=== PATIENT | male | born 1985 | race Hispanic/Latino ===

== ENCOUNTER 2021-07-03 15:47 | Inpatient (IN) | payer OTHER ==
[~2021-07-03] VITALS: Ht 175.3 cm; Wt 134.3 kg
[2021-07-03 17:01] LABS: BASOPHILS % (AUTO) 0.4 % (0.0-5.0); EOSINOPHILS % (AUTO) 0.5 % (0.0-8.0); HEMATOCRIT 41.9 % (42-54); LYMPHOCYTES % (AUTO) 8.5 % (21.0-51.0); MEAN CORPUSCULAR HEMOGLOBIN 31.9 pg (27.0-33.0); MEAN CORPUSCULAR HGB CONC 32.9 g/dL (32.0-36.0); MONOCYTES % (AUTO) 5.3 % (3.0-13.0); NEUTROPHILS % (AUTO) 83.6 % (40.0-77.0); PLATELET COUNT (AUTO) 164 K/uL (130-400); RED BLOOD CELL COUNT(AUTO) 4.32 MIL/uL (4.50-6.20); RED CELL DISTRIBUTION WIDTH 12.3 % (11.0-15.5)
[2021-07-03 17:04] LABS: INR 1.16 (0.85-1.15); PROTHROMBIN TIME 12.5 SEC (9.6-11.6)
[2021-07-03 17:06] LABS: PARTIAL THROMBOPLASTIN TIME 32.5 SEC (26.3-35.5)
[2021-07-03 17:07] LABS: POTASSIUM 4.1 mmol/L (3.5-5.1)
[2021-07-03 17:12] LABS: ALBUMIN 2.9 g/dL (3.5-5.0); BILIRUBIN,TOTAL 1.4 mg/dL (0.2-1.0); TOTAL PROTEIN, SERUM 7.7 g/dL (6.0-8.3)
[2021-07-03] MEDS ORDERED: ASCO1500 PO (17:18)
[2021-07-03] MEDS ORDERED: SEMA1PEN3 SQ (17:18)
[2021-07-03] MEDS ORDERED: METF500S7 PO (17:18)
[2021-07-03] MEDS ORDERED: LOSA50TA64 PO (17:18)
[2021-07-03] MEDS ORDERED: METF-444 PO (17:18)
[2021-07-03] MEDS ORDERED: MORPHINE 4 MG SYG IV ONE (18:00)
[2021-07-03] MEDS ORDERED: INSULIN HUMULIN R 100 UNIT/ML 3ML IV ONE (18:00)
[2021-07-03] MEDS ORDERED: 0.9%NACL 1000ML 1,000 ML IV ONE ×2 (18:00)
[2021-07-03] MEDS ORDERED: ONDANSETRON 4MG INJ IVP ONE (18:00)
[2021-07-03] MEDS ORDERED: ZOSYN 3.375GM+NS 50ML 3.38 GM in 0.9%NACL 50ML 50 ML IV SCH (18:00)
[2021-07-03] MEDS ORDERED: 0.9%NACL 50ML IV SCH (18:30)
[2021-07-03] MEDS: ZOSYN 3.375GM +NS 50ML IV SCH (18:53)
[2021-07-03] MEDS ORDERED: ONDANSETRON 4MG INJ IV PRN (20:00)
[2021-07-03] MEDS ORDERED: VANCOMYCIN PROTOCOL PER PHARMACY IV PRN (20:00)
[2021-07-03] MEDS ORDERED: LACTATED RINGERS 1000ML 2,259 ML IV ONE (20:00)
[2021-07-03] MEDS: LACTATED RINGERS 1000ML 1,000 ML IV SCH (20:00)
[2021-07-03] MEDS ORDERED: MORPHINE 2 MG SYG IV PRN (20:00)
[2021-07-03] MEDS ORDERED: MORPHINE 4 MG SYG IV PRN (20:00)
[2021-07-03] MEDS ORDERED: HYDRALAZINE 20MG/ML VIAL IV PRN (20:00)
[2021-07-03] MEDS ORDERED: NACL 0.9% IV ONE (21:00)
[2021-07-03] MEDS ORDERED: VANCOMYCIN IV ONE (21:00)
[2021-07-03] MEDS ORDERED: ZOSYN 3.375GM+NS 50ML 50 ML IV SCH (21:00)
[2021-07-03] MEDS: FAMOTIDINE 20MG VIAL IV SCH (21:00)
[2021-07-04] VITALS (26 sets, daily range): BP systolic 97–151; BP diastolic 51–89
[2021-07-04] MEDS ORDERED: ACETAMINOPHEN 500 MG TABLET ONE (01:27)
[2021-07-04] MEDS ORDERED: ACETAMINOPHEN 500 MG TABLET PO ONE (01:35)
[2021-07-04 02:06] LABS: APPEARANCE,URINE Cloudy (CLEAR); BILIRUBIN,URINE Small (NEGATIVE); COLOR,URINE Orange (YELLOW); GLUCOSE, URINE (UA) Negative (NEGATIVE); KETONES,URINE Trace mg/dL (NEGATIVE); LEUKOCYTE ESTERASE ,URINE Small (NEGATIVE); NITRATE,URINE Positive (NEGATIVE); OCCULT BLOOD,URINE Negative (NEGATIVE); PROTEIN,URINE POS 2+ mg/dL (NEGATIVE)
[2021-07-04 02:15] LABS: RBC,URINE 0-1 /HPF (0-1)
[2021-07-04 02:16] LABS: BACTERIA,URINE Few /HPF (None Seen)
[2021-07-04 02:17] LABS: FINE GRANULAR CASTS,URINE 0-2 /LPF (None Seen)
[2021-07-04 02:18] LABS: SQUAMOUS EPITHELIAL CELL,UR Many /HPF (0-2)
[2021-07-04] MEDS: ZOSYN 3.375GM +NS 50ML IV SCH ×2 (03:00→10:23)
[2021-07-04] MEDS ORDERED: VANCOMYCIN KIT 1 GM/250 ML IV.KIT IV SCH (05:00)
[2021-07-04] MEDS ORDERED: 0.9% NACL 250ML 250 ML IV SCH (05:00)
[2021-07-04] MEDS ORDERED: NOREPINEPHRIN 4MG/NS 250ML 250 ML IV ONE ×2 (05:25→18:21)
[2021-07-04 06:36] LABS: BASOPHILS % (AUTO) 0.4 % (0.0-5.0); EOSINOPHILS % (AUTO) 0.5 % (0.0-8.0); HEMATOCRIT 36.8 % (42-54); LYMPHOCYTES % (AUTO) 10.6 % (21.0-51.0); MEAN CORPUSCULAR HGB CONC 32.1 g/dL (32.0-36.0); MEAN CORPUSCULAR VOLUME 99.7 fL (79-99); MONOCYTES % (AUTO) 6.8 % (3.0-13.0); NEUTROPHILS % (AUTO) 79.2 % (40.0-77.0); PLATELET COUNT (AUTO) 154 K/uL (130-400); RED BLOOD CELL COUNT(AUTO) 3.69 MIL/uL (4.50-6.20); RED CELL DISTRIBUTION WIDTH 12.5 % (11.0-15.5); WHITE BLOOD COUNT (AUTO) 20.3 K/uL (4.8-10.8)
[2021-07-04 06:43] LABS: HEMOGLOBIN A1C 9.9 % (4.0-6.0)
[2021-07-04 06:48] LABS: CREATININE 1.4 mg/dL (0.5-1.5); MAGNESIUM 2.1 mg/dL (1.80-2.40); PHOSPHORUS 4.6 mg/dL (2.5-4.9); POTASSIUM 4.3 mmol/L (3.5-5.1)
[2021-07-04] MEDS: FAMOTIDINE 20MG VIAL IV SCH ×2 (07:58→21:24)
[2021-07-04] MEDS: LACTATED RINGERS 1000ML 1,000 ML IV SCH ×2 (07:59→16:56)
[2021-07-04] MEDS ORDERED: LACTATED RINGERS 1000ML 1,000 ML IV ONE (09:00)
[2021-07-04] MEDS: INSULIN GLARGINE 100 UNITS/ML 10 ML VIAL SQ SCH (10:18)
[2021-07-04] MEDS: CLINDAMYCIN IVPB 600MG/50ML 50 ML IV SCH ×3 (10:23→23:56)
[2021-07-04] MEDS: INSULIN HUMULIN R 100 UNIT/ML 3ML SQ SCH ×2 (12:00→17:36)
[2021-07-04] MEDS: MEROPENEM 1 GM VIAL IVP SCH (14:30)
[2021-07-04] MEDS ORDERED: CHOL2400 MC (15:25)
[2021-07-04] MEDS ORDERED: MAGN400T7 PO (15:25)
[2021-07-04] MEDS: VANCOMYCIN KIT 1 GM/250 ML IV.KIT IV SCH (16:56)
[2021-07-04 18:02] LABS: HEMATOCRIT 36.3 % (42-54); MEAN CORPUSCULAR HEMOGLOBIN 32.4 pg (27.0-33.0); MEAN CORPUSCULAR HGB CONC 32.5 g/dL (32.0-36.0); MEAN CORPUSCULAR VOLUME 99.7 fL (79-99); PLATELET COUNT (AUTO) 128 K/uL (130-400); RED BLOOD CELL COUNT(AUTO) 3.64 MIL/uL (4.50-6.20); RED CELL DISTRIBUTION WIDTH 12.6 % (11.0-15.5)
[2021-07-04 18:14] LABS: CREATININE 1.8 mg/dL (0.5-1.5); POTASSIUM 4.6 mmol/L (3.5-5.1)
[2021-07-04] MEDS ORDERED: ONDANSETRON 4MG INJ ONE (18:34)
[2021-07-04] MEDS ORDERED: SUCCINYLCHOLINE CHLORIDE 20 MG/ML 10 ML VIAL ONE (18:34)
[2021-07-04] MEDS ORDERED: MIDAZOLAM HCL 1 MG/ML 2ML VIAL ONE (18:34)
[2021-07-04] MEDS ORDERED: GLYCOPYRROLATE 1 MG/5 ML SYRINGE ONE (18:34)
[2021-07-04] MEDS ORDERED: DEXAMETHASONE SOD PHOSPHATE 10MG/ML 1ML VIAL ONE (18:34)
[2021-07-04] MEDS ORDERED: LIDOCAINE PF 100MG/5ML (2%) SYRINGE 5ML ONE (18:34)
[2021-07-04] MEDS ORDERED: PROPOFOL 10 MG/ML 20ML VIAL IV ONE (18:35)
[2021-07-04] MEDS ORDERED: NEOSTIGMINE 5MG/5ML SYR IV ONE (18:35)
[2021-07-04] MEDS ORDERED: FENTANYL CITRATE PF 50 MCG/1 ML 2ML VIAL ONE (18:35)
[2021-07-04] MEDS ORDERED: ROCURONIUM 10MG/1ML SYR 10 MG/ML ML ONE ×3 (18:35→20:03)
[2021-07-04] MEDS ORDERED: SODIUM BICARB 8.4% 50ML SYRINGE ONE (18:40)
[2021-07-04] MEDS ORDERED: KETAMINE 50MG/ML SYRINGE 50 MG/ML DISP.SYRIN IV ONE (18:40)
[2021-07-04 18:53] LABS: BAND NEUTROPHILS % (MANUAL) 15 % (0-2); EOSINOPHILS % (MANUAL) 1 % (1-6); LYMPHOCYTES % (MANUAL) 10 % (22-44); MAN.DIFF COMMENT-IMPRESSION MANUAL DIFFERENTIAL; MONOCYTES % (MANUAL) 6 % (2-9); SEGMENTED NEUTROPHILS % 68 % (40-70)
[2021-07-04] MEDS ORDERED: PHENYLEPHRINE HCL 10 MG/ML 1ML VIAL IV ONE (19:01)
[2021-07-04] MEDS ORDERED: EPHEDRINE SULFATE 50 MG/ML AMPULE ONE ×2 (19:24→20:11)
[2021-07-04] MEDS ORDERED: GENTAMICIN SULFATE 80 MG/2 ML VIAL ONE (19:34)
[2021-07-04] MEDS ORDERED: PROPOFOL 1000 MG/100 ML 100 ML IV ONE (20:45)
[2021-07-04] MEDS ORDERED: NOREPINEPHRINE BITARTRATE 8 MG in 0.9% NACL 250ML 250 ML IV SCH (21:00)
[2021-07-04] MEDS ORDERED: ACETAMINOPHEN 650 MG SUPPOSITORY RC ONE (21:05)
[2021-07-04] MEDS ORDERED: FENTANYL CITRATE PF 0.05 MG/ML 1,000 MCG in 0.9%NACL 100ML 100 ML IVPB SCH (22:00)
[2021-07-04] MEDS: PROPOFOL 1000 MG/100 ML 100 ML IV SCH (22:26)
[2021-07-04 22:47] LABS: ABG BASE EXCESS -3.9 mmol/L (-2.0-3.0); ABG HCO3 24.5 mmol/L (21.0-28.0); ABG OXYGEN SATURATION 95.8 % (95.0-99.0); ABG PCO2 58 mmHg (35-48)
[2021-07-04] MEDS: FENTANYL 2500MCG+NS 250ML 250 ML IV SCH (23:16)
[2021-07-05] VITALS (37 sets, daily range): BP systolic 94–121; BP diastolic 42–76
[2021-07-05] MEDS: INSULIN HUMULIN R 100 UNIT/ML 3ML SQ SCH ×4 (00:01→18:30)
[2021-07-05] MEDS: VANCOMYCIN KIT 1 GM/250 ML IV.KIT IV SCH ×4 (00:11→23:36)
[2021-07-05] MEDS: PROPOFOL 1000 MG/100 ML 100 ML IV SCH ×8 (00:18→23:30)
[2021-07-05] MEDS: MEROPENEM 1 GM VIAL IVP SCH ×2 (02:14→14:00)
[2021-07-05] MEDS: LACTATED RINGERS 1000ML 1,000 ML IV SCH (02:14)
[2021-07-05 04:03] LABS: BASOPHILS % (AUTO) 0.8 % (0.0-5.0); HEMATOCRIT 37.5 % (42-54); LYMPHOCYTES % (AUTO) 6.8 % (21.0-51.0); MEAN CORPUSCULAR HEMOGLOBIN 32.4 pg (27.0-33.0); MEAN CORPUSCULAR HGB CONC 31.2 g/dL (32.0-36.0); MEAN CORPUSCULAR VOLUME 103.9 fL (79-99); MONOCYTES % (AUTO) 4.3 % (3.0-13.0); NEUTROPHILS % (AUTO) 84.9 % (40.0-77.0); PLATELET COUNT (AUTO) 161 K/uL (130-400); RED BLOOD CELL COUNT(AUTO) 3.61 MIL/uL (4.50-6.20); RED CELL DISTRIBUTION WIDTH 12.8 % (11.0-15.5); WHITE BLOOD COUNT (AUTO) 21.8 K/uL (4.8-10.8)
[2021-07-05 04:17] LABS: ALBUMIN 2.2 g/dL (3.5-5.0); BILIRUBIN,TOTAL 0.7 mg/dL (0.2-1.0); CREATININE 3.3 mg/dL (0.5-1.5); POTASSIUM 5.4 mmol/L (3.5-5.1)
[2021-07-05 06:29] LABS: ABG BASE EXCESS -7.2 mmol/L (-2.0-3.0); ABG HCO3 21.8 mmol/L (21.0-28.0); ABG OXYGEN SATURATION 95.1 % (95.0-99.0); ABG PCO2 59 mmHg (35-48)
[2021-07-05] MEDS: FAMOTIDINE 20MG VIAL IV SCH ×2 (07:59→21:13)
[2021-07-05] MEDS: CLINDAMYCIN IVPB 600MG/50ML 50 ML IV SCH ×2 (08:00→15:11)
[2021-07-05] MEDS: INSULIN GLARGINE 100 UNITS/ML 10 ML VIAL SQ SCH (08:15)
[2021-07-05] MEDS ORDERED: CALCIUM GLUC 1GM 1 GM in 0.9%NACL 100ML 100 ML IV SCH (09:00)
[2021-07-05] MEDS ORDERED: CALCIUM GLUC 1GM/10ML VIAL IV SCH (09:00)
[2021-07-05] MEDS ORDERED: INSULIN GLARGINE 100 UNITS/ML 10 ML VIAL SQ SCH (09:00)
[2021-07-05] MEDS ORDERED: FUROSEMIDE 20MG VIAL IV SCH ×2 (09:00→10:30)
[2021-07-05] MEDS ORDERED: NA ZIRCON CYCLOSIL(LOKELMA 10GM) PO SCH (09:30)
[2021-07-05] MEDS ORDERED: CALCIUM GLUC 1GM/10ML VIAL ONE (09:32)
[2021-07-05 09:48] LABS: ABG BASE EXCESS -5.5 mmol/L (-2.0-3.0); ABG HCO3 23.2 mmol/L (21.0-28.0); ABG OXYGEN SATURATION 93.7 % (95.0-99.0); ABG PCO2 60 mmHg (35-48)
[2021-07-05 12:10] LABS: ABG BASE EXCESS -4.8 mmol/L (-2.0-3.0); ABG HCO3 21.4 mmol/L (21.0-28.0); ABG OXYGEN SATURATION 96.8 % (95.0-99.0); ABG PCO2 44 mmHg (35-48)
[2021-07-05] MEDS: FENTANYL 2500MCG+NS 250ML 250 ML IV SCH ×2 (14:10→23:33)
[2021-07-05] MEDS ORDERED: BUMETANIDE 1MG/4ML VIAL IM SCH (14:30)
[2021-07-05] MEDS ORDERED: DEXMEDETOMIDINE 400MCG/NS100ML IV SCH (14:30)
[2021-07-05 15:10] LABS: CREATININE 4.3 mg/dL (0.5-1.5); MAGNESIUM 2.7 mg/dL (1.80-2.40); POTASSIUM 5.3 mmol/L (3.5-5.1)
[2021-07-05 16:10] LABS: ABG BASE EXCESS -5.8 mmol/L (-2.0-3.0); ABG HCO3 20.2 mmol/L (21.0-28.0); ABG OXYGEN SATURATION 96.8 % (95.0-99.0); ABG PCO2 41 mmHg (35-48)
[2021-07-05] MEDS: DEXMEDETOMIDINE 400MCG/NS100ML IV PRN ×3 (16:54→23:33)
[2021-07-05] MEDS ORDERED: PHARMACY COMMUNICATION MISC SCH (17:30)
[2021-07-05] MEDS ORDERED: NA ZIRCON CYCLOSIL(LOKELMA 10GM) PO ONE (18:00)
[2021-07-06] VITALS (44 sets, daily range): BP systolic 93–169; BP diastolic 59–100
[2021-07-06] MEDS ORDERED: INSULIN HUMULIN R 100 UNIT/ML 3ML SQ SCH
[2021-07-06] MEDS: CLINDAMYCIN IVPB 600MG/50ML 50 ML IV SCH ×3 (00:16→15:57)
[2021-07-06] MEDS: INSULIN HUMULIN R 100 UNIT/ML 3ML SQ SCH ×2 (00:17→06:00)
[2021-07-06] MEDS: PROPOFOL 1000 MG/100 ML 100 ML IV SCH ×7 (01:58→21:38)
[2021-07-06] MEDS: MEROPENEM 1 GM VIAL IVP SCH ×2 (02:17→14:36)
[2021-07-06 05:34] LABS: BASOPHILS % (AUTO) 0.7 % (0.0-5.0); HEMATOCRIT 36.5 % (42-54); LYMPHOCYTES % (AUTO) 6.7 % (21.0-51.0); MEAN CORPUSCULAR HEMOGLOBIN 31.9 pg (27.0-33.0); MEAN CORPUSCULAR HGB CONC 31.8 g/dL (32.0-36.0); MEAN CORPUSCULAR VOLUME 100.3 fL (79-99); MONOCYTES % (AUTO) 7.5 % (3.0-13.0); NEUTROPHILS % (AUTO) 79.9 % (40.0-77.0); NUCLEATED RED BLOOD CELLS 0.1 % (0.0-0.19); PLATELET COUNT (AUTO) 186 K/uL (130-400); RED BLOOD CELL COUNT(AUTO) 3.64 MIL/uL (4.50-6.20); RED CELL DISTRIBUTION WIDTH 12.8 % (11.0-15.5); WHITE BLOOD COUNT (AUTO) 16.8 K/uL (4.8-10.8)
[2021-07-06 05:45] LABS: ABG BASE EXCESS -4.1 mmol/L (-2.0-3.0); ABG HCO3 21.1 mmol/L (21.0-28.0); ABG OXYGEN SATURATION 93.6 % (95.0-99.0); ABG PCO2 39 mmHg (35-48)
[2021-07-06 05:48] LABS: CREATININE 5.1 mg/dL (0.5-1.5); POTASSIUM 5.5 mmol/L (3.5-5.1)
[2021-07-06 06:10] LABS: ALBUMIN 1.9 g/dL (3.5-5.0); BILIRUBIN,DIRECT 0.4 mg/dL (0.0-0.3); BILIRUBIN,TOTAL 0.6 mg/dL (0.2-1.0); TOTAL PROTEIN, SERUM 6.9 g/dL (6.0-8.3)
[2021-07-06] MEDS ORDERED: INSULIN HUMULIN R 100 UNIT/ML 3ML IV SCH (06:30)
[2021-07-06] MEDS ORDERED: NA ZIRCON CYCLOSIL(LOKELMA 10GM) PO SCH (08:30)
[2021-07-06] MEDS ORDERED: PHARMACY COMMUNICATION MISC SCH (08:30)
[2021-07-06] MEDS ORDERED: INSULIN GLARGINE 100 UNITS/ML 10 ML VIAL SQ ONE (09:00)
[2021-07-06 09:22] LABS: INR 1.1 (0.85-1.15); PROTHROMBIN TIME 11.9 SEC (9.6-11.6)
[2021-07-06 09:24] LABS: PARTIAL THROMBOPLASTIN TIME 28.5 SEC (26.3-35.5)
[2021-07-06] MEDS: FENTANYL 2500MCG+NS 250ML 250 ML IV SCH ×2 (09:40→19:18)
[2021-07-06] MEDS: DEXMEDETOMIDINE 400MCG/NS100ML IV PRN ×4 (09:41→19:55)
[2021-07-06] MEDS: NOREPINEPHRINE BITARTRATE 32 MG in 0.9% NACL 250ML 250 ML IV SCH (09:41)
[2021-07-06] MEDS: INSULIN REGULAR, HUMAN 3ML 100 UNIT in 0.9%NACL 100ML 99 ML IV PRN ×4 (09:45→15:54)
[2021-07-06 09:56] LABS: APPEARANCE,URINE Turbid (CLEAR); BILIRUBIN,URINE Negative (NEGATIVE); COLOR,URINE Yellow (YELLOW); GLUCOSE, URINE (UA) 500 mg/dL (NEGATIVE); KETONES,URINE Negative (NEGATIVE); LEUKOCYTE ESTERASE ,URINE Negative (NEGATIVE); NITRATE,URINE Negative (NEGATIVE); OCCULT BLOOD,URINE Large (NEGATIVE); PROTEIN,URINE POS 1+ mg/dL (NEGATIVE)
[2021-07-06 10:01] LABS: CREATININE,URINE RANDOM 129 mg/dL (30-135); SODIUM,URINE RANDOM 28 mmol/l (40-220)
[2021-07-06 10:04] LABS: AMPHET/METH SCREEN,URINE NEGATIVE (NEGATIVE); BARBITURATE SCREEN, URINE NEGATIVE (NEGATIVE); BENZODIAZEPINES SCREEN,URINE POSITIVE (NEGATIVE); CANNABINOID SCREEN,URINE NEGATIVE (NEGATIVE); COCAINE SCREEN,URINE NEGATIVE (NEGATIVE); OPIATE SCREEN,URINE NEGATIVE (NEGATIVE); PHENCYCLIDINE SCREEN,URINE NEGATIVE (NEGATIVE)
[2021-07-06 10:36] LABS: AMORPHOUS SEDIMENT,UR Few /LPF (None Seen); BACTERIA,URINE Many /HPF (None Seen); HYALINE CASTS, URINE 0-1 /LPF (0-1 /LPF); SQUAMOUS EPITHELIAL CELL,UR None Seen /HPF (0-2)
[2021-07-06] MEDS: FAMOTIDINE 20MG VIAL IV SCH ×2 (11:32→21:39)
[2021-07-06 11:49] LABS: CHOLESTEROL 145 mg/dL (<200); HDL CHOLESTEROL 11 mg/dL (29-71); LDL DIRECT 58 mg/dL (0-99); TRIGLYCERIDES 558 mg/dL (30-200)
[2021-07-06 14:12] LABS: CHLAMYDIA DNA N.A.AMPLIFY Negative (Negative); GC DNA N.A. AMPLIFY Negative (Negative)
[2021-07-06 15:47] LABS: HEMATOCRIT 44.7 % (42-54)
[2021-07-06 15:58] LABS: ALBUMIN 2.8 g/dL (3.5-5.0)
[2021-07-06] MEDS: MIDAZOLAM 100MG-0.9% NS 100ML 100ML BAG IV SCH (15:59)
[2021-07-06] MEDS ORDERED: HEPARIN 5,000 UNIT VIAL IV SCH (16:00)
[2021-07-06 16:01] LABS: HEMOGLOBIN A1C 10.1 % (4.0-6.0)
[2021-07-06 17:37] LABS: % IRON SATURATION 42.2 % (30-44)
[2021-07-07] VITALS (47 sets, daily range): BP systolic 85–150; BP diastolic 46–98
[2021-07-07] MEDS: CLINDAMYCIN IVPB 600MG/50ML 50 ML IV SCH (00:34)
[2021-07-07] MEDS: PROPOFOL 1000 MG/100 ML 100 ML IV SCH ×7 (00:35→23:56)
[2021-07-07] MEDS: DEXMEDETOMIDINE 400MCG/NS100ML IV PRN ×6 (00:36→23:57)
[2021-07-07] MEDS: MEROPENEM 1 GM VIAL IVP SCH ×2 (02:59→14:49)
[2021-07-07] MEDS: ACETAMINOPHEN 325 MG TAB PO PRN (03:10)
[2021-07-07 03:29] LABS: BASOPHILS % (AUTO) 0.1 % (0.0-5.0); EOSINOPHILS % (AUTO) 0.1 % (0.0-8.0); HEMATOCRIT 38.4 % (42-54); LYMPHOCYTES % (AUTO) 21.1 % (21.0-51.0); MONOCYTES % (AUTO) 12.4 % (3.0-13.0); NEUTROPHILS % (AUTO) 59.9 % (40.0-77.0); NUCLEATED RED BLOOD CELLS 0.1 % (0.0-0.19); PLATELET COUNT (AUTO) 207 K/uL (130-400); RED BLOOD CELL COUNT(AUTO) 3.84 MIL/uL (4.50-6.20); RED CELL DISTRIBUTION WIDTH 13.1 % (11.0-15.5); WHITE BLOOD COUNT (AUTO) 15.7 K/uL (4.8-10.8)
[2021-07-07 03:44] LABS: BILIRUBIN,TOTAL 0.5 mg/dL (0.2-1.0); CREATININE 5.4 mg/dL (0.5-1.5); POTASSIUM 4.7 mmol/L (3.5-5.1); TOTAL PROTEIN, SERUM 7.2 g/dL (6.0-8.3)
[2021-07-07] MEDS: MIDAZOLAM 100MG-0.9% NS 100ML 100ML BAG IV SCH (04:04)
[2021-07-07 05:07] LABS: ABG BASE EXCESS -5.9 mmol/L (-2.0-3.0); ABG HCO3 18.4 mmol/L (21.0-28.0); ABG OXYGEN SATURATION 93.1 % (95.0-99.0); ABG PCO2 33 mmHg (35-48)
[2021-07-07] MEDS: FENTANYL 2500MCG+NS 250ML 250 ML IV SCH ×2 (05:49→18:04)
[2021-07-07] MEDS ORDERED: HEPARIN 5,000 UNIT VIAL IV SCH (11:30)
[2021-07-07] MEDS: PANTOPRAZOLE 40 MG/VIAL IVP SCH (13:28)
[2021-07-07] MEDS: FLUCONAZOLE 200 MG/NS 100 ML 100 ML IV SCH (13:28)
[2021-07-07] MEDS ORDERED: ROCURONIUM BROMIDE 10MG/1ML 5ML VL ONE (15:47)
[2021-07-07] MEDS: HEPARIN 5,000 UNIT VIAL SQ SCH (17:33)
[2021-07-07] MEDS ORDERED: COMPOUND IV REFRIGERATED 1 EACH IVSOLN MISC PRN (18:30)
[2021-07-07] MEDS: VANCOMYCIN 1.75GM/250ML NS IV SCH ×2 (19:48)
[2021-07-08] VITALS (36 sets, daily range): BP systolic 82–126; BP diastolic 45–81
[2021-07-08] MEDS: HEPARIN 5,000 UNIT VIAL SQ SCH ×3 (01:58→16:20)
[2021-07-08] MEDS: MEROPENEM 1 GM VIAL IVP SCH ×2 (01:58→14:02)
[2021-07-08] MEDS: MIDAZOLAM 100MG-0.9% NS 100ML 100ML BAG IV SCH ×3 (01:58→20:58)
[2021-07-08] MEDS: FENTANYL 2500MCG+NS 250ML 250 ML IV SCH ×3 (02:00→23:37)
[2021-07-08] MEDS: PROPOFOL 1000 MG/100 ML 100 ML IV SCH ×8 (03:25→23:34)
[2021-07-08] MEDS: DEXMEDETOMIDINE 400MCG/NS100ML IV PRN ×6 (03:30→23:35)
[2021-07-08 04:32] LABS: BASOPHILS % (AUTO) 0.8 % (0.0-5.0); EOSINOPHILS % (AUTO) 1.8 % (0.0-8.0); HEMATOCRIT 38.8 % (42-54); LYMPHOCYTES % (AUTO) 17.3 % (21.0-51.0); MEAN CORPUSCULAR HEMOGLOBIN 31.8 pg (27.0-33.0); MEAN CORPUSCULAR HGB CONC 32.2 g/dL (32.0-36.0); MEAN CORPUSCULAR VOLUME 98.7 fL (79-99); MONOCYTES % (AUTO) 11.1 % (3.0-13.0); PLATELET COUNT (AUTO) 191 K/uL (130-400); RED BLOOD CELL COUNT(AUTO) 3.93 MIL/uL (4.50-6.20); RED CELL DISTRIBUTION WIDTH 12.9 % (11.0-15.5); WHITE BLOOD COUNT (AUTO) 15.9 K/uL (4.8-10.8)
[2021-07-08 04:52] LABS: ALBUMIN 1.9 g/dL (3.5-5.0); BILIRUBIN,TOTAL 0.5 mg/dL (0.2-1.0); CREATININE 4.9 mg/dL (0.5-1.5); POTASSIUM 4.5 mmol/L (3.5-5.1)
[2021-07-08 07:28] LABS: ABG HCO3 22.4 mmol/L (21.0-28.0); ABG OXYGEN SATURATION 94.9 % (95.0-99.0); ABG PCO2 37 mmHg (35-48)
[2021-07-08] MEDS: PANTOPRAZOLE 40 MG/VIAL IVP SCH (08:30)
[2021-07-08] MEDS: FLUCONAZOLE 200 MG/NS 100 ML 100 ML IV SCH (08:30)
[2021-07-08 12:08] LABS: HEPATITIS Bs ANTIGEN SCREEN P Negative (Negative)
[2021-07-08] MEDS: ALBUTEROL 0.083% 2.5 MG/3 ML INH IH SCH ×2 (13:46→21:01)
[2021-07-08] MEDS: MIDODRINE HCL 5 MG TABLET PO SCH ×2 (14:00→20:17)
[2021-07-08] MEDS ORDERED: FUROSEMIDE 40MG VIAL IV ONE (15:30)
[2021-07-08] MEDS: ACETAMINOPHEN 325 MG TAB PO PRN (20:17)
[2021-07-08] MEDS ORDERED: NOREPINEPHRIN 4MG/NS 250ML 0 ML IV ONE (21:49)
[2021-07-09] VITALS (55 sets, daily range): BP systolic 63–145; BP diastolic 37–97
[2021-07-09] MEDS: HEPARIN 5,000 UNIT VIAL SQ SCH ×3 (01:49→18:16)
[2021-07-09] MEDS: MEROPENEM 1 GM VIAL IVP SCH ×2 (01:49→14:01)
[2021-07-09] MEDS ORDERED: NOREPINEPHRINE BITARTRATE 1 MG/1 ML ML IV ONE ×2 (02:02→02:03)
[2021-07-09] MEDS: NOREPINEPHRINE BITARTRATE 32 MG in 0.9% NACL 250ML 250 ML IV SCH (02:29)
[2021-07-09] MEDS: PROPOFOL 1000 MG/100 ML 100 ML IV SCH ×6 (03:43→21:16)
[2021-07-09] MEDS: DEXMEDETOMIDINE 400MCG/NS100ML IV PRN ×6 (04:26→21:46)
[2021-07-09 04:38] LABS: BASOPHILS % (AUTO) 0.3 % (0.0-5.0); HEMATOCRIT 39.7 % (42-54); LYMPHOCYTES % (AUTO) 15.6 % (21.0-51.0); MEAN CORPUSCULAR HEMOGLOBIN 31.2 pg (27.0-33.0); MEAN CORPUSCULAR VOLUME 100.8 fL (79-99); MONOCYTES % (AUTO) 8.1 % (3.0-13.0); NEUTROPHILS % (AUTO) 63.7 % (40.0-77.0); PLATELET COUNT (AUTO) 195 K/uL (130-400); RED BLOOD CELL COUNT(AUTO) 3.94 MIL/uL (4.50-6.20); WHITE BLOOD COUNT (AUTO) 18.2 K/uL (4.8-10.8)
[2021-07-09 04:58] LABS: ALBUMIN 1.9 g/dL (3.5-5.0); BILIRUBIN,TOTAL 0.5 mg/dL (0.2-1.0); MAGNESIUM 2.9 mg/dL (1.80-2.40); POTASSIUM 4.9 mmol/L (3.5-5.1)
[2021-07-09] MEDS: ALBUTEROL 0.083% 2.5 MG/3 ML INH IH SCH ×3 (06:17→22:50)
[2021-07-09 06:54] LABS: ABG BASE EXCESS -5.5 mmol/L (-2.0-3.0); ABG HCO3 20.8 mmol/L (21.0-28.0); ABG OXYGEN SATURATION 89.6 % (95.0-99.0); ABG PCO2 43 mmHg (35-48)
[2021-07-09] MEDS: FLUCONAZOLE 200 MG/NS 100 ML 100 ML IV SCH (08:23)
[2021-07-09] MEDS: PANTOPRAZOLE 40 MG/VIAL IVP SCH (08:23)
[2021-07-09] MEDS: MIDODRINE HCL 5 MG TABLET PO SCH (08:23)
[2021-07-09] MEDS ORDERED: ARTIFICAL TEARS SOL 15 ML OU PRN (11:00)
[2021-07-09] MEDS: MIDAZOLAM 100MG-0.9% NS 100ML 100ML BAG IV SCH ×2 (11:47→18:25)
[2021-07-09] MEDS: FENTANYL 2500MCG+NS 250ML 250 ML IV SCH (12:28)
[2021-07-09] MEDS ORDERED: MIDODRINE HCL 5 MG TABLET PO SCH (14:00)
[2021-07-09] MEDS: ACETAMINOPHEN 325 MG TAB PO PRN ×2 (14:01→21:35)
[2021-07-09] MEDS: BALSAM PERU/CASTOR OIL 60 GM TUBE TP SCH (21:00)
[2021-07-09] MEDS: VANCOMYCIN 1.75GM/250ML NS IV SCH ×2 (21:14)
[2021-07-10] VITALS (28 sets, daily range): BP systolic 79–151; BP diastolic 41–106
[2021-07-10] MEDS: MEROPENEM 1 GM VIAL IVP SCH ×2 (01:58→14:08)
[2021-07-10] MEDS: HEPARIN 5,000 UNIT VIAL SQ SCH ×3 (01:59→16:13)
[2021-07-10] MEDS: DEXMEDETOMIDINE 400MCG/NS100ML IV PRN ×3 (02:00→16:12)
[2021-07-10] MEDS: MIDAZOLAM 100MG-0.9% NS 100ML 100ML BAG IV SCH ×2 (02:01→16:11)
[2021-07-10] MEDS: PROPOFOL 1000 MG/100 ML 100 ML IV SCH ×2 (02:01→08:49)
[2021-07-10 05:16] LABS: BASOPHILS % (AUTO) 0.7 % (0.0-5.0); EOSINOPHILS % (AUTO) 2.8 % (0.0-8.0); HEMATOCRIT 43.1 % (42-54); LYMPHOCYTES % (AUTO) 8.9 % (21.0-51.0); MEAN CORPUSCULAR HEMOGLOBIN 31.6 pg (27.0-33.0); MEAN CORPUSCULAR HGB CONC 32.5 g/dL (32.0-36.0); MEAN CORPUSCULAR VOLUME 97.3 fL (79-99); MONOCYTES % (AUTO) 5.5 % (3.0-13.0); NEUTROPHILS % (AUTO) 73.7 % (40.0-77.0); PLATELET COUNT (AUTO) 165 K/uL (130-400); RED BLOOD CELL COUNT(AUTO) 4.43 MIL/uL (4.50-6.20); RED CELL DISTRIBUTION WIDTH 12.8 % (11.0-15.5); WHITE BLOOD COUNT (AUTO) 18.5 K/uL (4.8-10.8)
[2021-07-10 05:35] LABS: ALBUMIN 1.8 g/dL (3.5-5.0); BILIRUBIN,TOTAL 0.7 mg/dL (0.2-1.0); CREATININE 3.8 mg/dL (0.5-1.5); POTASSIUM 4.6 mmol/L (3.5-5.1); TOTAL PROTEIN, SERUM 7.1 g/dL (6.0-8.3)
[2021-07-10] MEDS: ALBUTEROL 0.083% 2.5 MG/3 ML INH IH SCH ×2 (06:34→23:19)
[2021-07-10 07:37] LABS: ABG HCO3 22.3 mmol/L (21.0-28.0); ABG OXYGEN SATURATION 97.1 % (95.0-99.0); ABG PCO2 33 mmHg (35-48)
[2021-07-10] MEDS: FLUCONAZOLE 200 MG/NS 100 ML 100 ML IV SCH (07:38)
[2021-07-10] MEDS: PANTOPRAZOLE 40 MG/VIAL IVP SCH (07:38)
[2021-07-10] MEDS: ACETAMINOPHEN 325 MG TAB PO PRN ×2 (07:39→14:15)
[2021-07-10] MEDS: FUROSEMIDE 40MG VIAL IV SCH (14:08)
[2021-07-10] MEDS: VECURONIUM 10MG/10ML IV PRN (14:31)
[2021-07-10 16:26] LABS: MAGNESIUM 3.1 mg/dL (1.80-2.40); PHOSPHORUS 10.7 mg/dL (2.5-4.9); POTASSIUM 5.9 mmol/L (3.5-5.1)
[2021-07-10] MEDS ORDERED: KAYEXALATE 15GM/60ML PO SCH (17:00)
[2021-07-10] MEDS: BALSAM PERU/CASTOR OIL 60 GM TUBE TP SCH ×2 (19:00→21:48)
[2021-07-10] MEDS ORDERED: FENTANYL 2500MCG+NS 250ML 250 ML IV ONE (19:32)
[2021-07-10] MEDS: NOREPINEPHRINE BITARTRATE 32 MG in 0.9% NACL 250ML 250 ML IV SCH (20:08)
[2021-07-10] MEDS: INSULIN REGULAR, HUMAN 3ML 100 UNIT in 0.9%NACL 100ML 99 ML IV PRN ×2 (20:09)
[2021-07-11] VITALS (54 sets, daily range): BP systolic 72–150; BP diastolic 31–88
[2021-07-11] MEDS: HEPARIN 5,000 UNIT VIAL SQ SCH ×3 (01:11→18:11)
[2021-07-11] MEDS: MEROPENEM 1 GM VIAL IVP SCH ×2 (02:30→12:17)
[2021-07-11 04:11] LABS: ABG BASE EXCESS -2.2 mmol/L (-2.0-3.0); ABG HCO3 20.7 mmol/L (21.0-28.0); ABG OXYGEN SATURATION 92.6 % (95.0-99.0); ABG PCO2 30 mmHg (35-48)
[2021-07-11 04:26] LABS: BASOPHILS % (AUTO) 0.2 % (0.0-5.0); HEMATOCRIT 38.3 % (42-54); LYMPHOCYTES % (AUTO) 8.3 % (21.0-51.0); MEAN CORPUSCULAR HEMOGLOBIN 31.5 pg (27.0-33.0); MEAN CORPUSCULAR HGB CONC 32.4 g/dL (32.0-36.0); MEAN CORPUSCULAR VOLUME 97.2 fL (79-99); NEUTROPHILS % (AUTO) 76.6 % (40.0-77.0); PLATELET COUNT (AUTO) 223 K/uL (130-400); RED BLOOD CELL COUNT(AUTO) 3.94 MIL/uL (4.50-6.20); RED CELL DISTRIBUTION WIDTH 12.6 % (11.0-15.5)
[2021-07-11 04:29] LABS: ALBUMIN 1.7 g/dL (3.5-5.0); BILIRUBIN,TOTAL 0.8 mg/dL (0.2-1.0); CREATININE 4.3 mg/dL (0.5-1.5); POTASSIUM 4.5 mmol/L (3.5-5.1); TOTAL PROTEIN, SERUM 7.2 g/dL (6.0-8.3)
[2021-07-11] MEDS: ALBUTEROL 0.083% 2.5 MG/3 ML INH IH SCH ×3 (06:17→22:04)
[2021-07-11] MEDS ORDERED: 0.9% NACL 500ML IV.SOLN 500 ML IV ONE (08:49)
[2021-07-11 10:03] LABS: MAGNESIUM 3.1 mg/dL (1.80-2.40)
[2021-07-11 10:54] LABS: BF LYMPHOCYTE 24 %; BF MESOTHELIAL 24 %; BF MONOCYTE 1 %
[2021-07-11 10:55] LABS: APPEARANCE BODY FLUID TURBID (CLEAR); BODY FLUID WBC 173 /cu. mm.; COLOR,BODY FLUID COLORLESS (LT YELLOW); SPECIMENTYPE,BODY FLUID BAL-RML
[2021-07-11 10:56] LABS: BODY FLUID RBC 419 /cu. mm.
[2021-07-11 10:57] LABS: TOTAL VOLUME,BODY FLUID 15 mL
[2021-07-11] MEDS: VECURONIUM 10MG/10ML IV PRN ×2 (11:28→16:21)
[2021-07-11] MEDS: FLUCONAZOLE 200 MG/NS 100 ML 100 ML IV SCH (12:17)
[2021-07-11] MEDS: PANTOPRAZOLE 40 MG/VIAL IVP SCH (12:17)
[2021-07-11] MEDS ORDERED: METRONIDAZOLE 500MG/100ML BAG 100 ML IVPB SCH (14:00)
[2021-07-11] MEDS ORDERED: 0.9%NACL 1000ML 1,000 ML IV ONE (14:52)
[2021-07-11] MEDS: FUROSEMIDE 40MG VIAL IV SCH (17:58)
[2021-07-11] MEDS: BALSAM PERU/CASTOR OIL 60 GM TUBE TP SCH ×2 (17:59→22:26)
[2021-07-11] MEDS: MIDAZOLAM 100MG-0.9% NS 100ML 100ML BAG IV SCH (19:47)
[2021-07-11] MEDS: VANCOMYCIN 1.75GM/250ML NS IV SCH ×2 (20:38)
[2021-07-11] MEDS: METRONIDAZOLE 500 MG TABLET PO SCH (22:26)
[2021-07-11] MEDS ORDERED: FENTANYL 2500MCG+NS 250ML 250 ML IV ONE (22:44)
[2021-07-12] VITALS (43 sets, daily range): BP systolic 86–150; BP diastolic 35–82
[2021-07-12] MEDS: ALBUTEROL 0.083% 2.5 MG/3 ML INH IH SCH ×4 (00:46→18:25)
[2021-07-12] MEDS ORDERED: CHLORPROMAZINE HCL 25 MG/ML 1ML AMP IM SCH (01:00)
[2021-07-12] MEDS: HEPARIN 5,000 UNIT VIAL SQ SCH ×3 (01:06→17:56)
[2021-07-12] MEDS: MEROPENEM 1 GM VIAL IVP SCH ×2 (01:58→13:11)
[2021-07-12 04:30] LABS: BASOPHILS % (AUTO) 0.8 % (0.0-5.0); EOSINOPHILS % (AUTO) 3.3 % (0.0-8.0); HEMATOCRIT 36.1 % (42-54); LYMPHOCYTES % (AUTO) 9.7 % (21.0-51.0); MEAN CORPUSCULAR HEMOGLOBIN 31.5 pg (27.0-33.0); MEAN CORPUSCULAR HGB CONC 31.3 g/dL (32.0-36.0); MEAN CORPUSCULAR VOLUME 100.6 fL (79-99); MONOCYTES % (AUTO) 7.9 % (3.0-13.0); NEUTROPHILS % (AUTO) 70.8 % (40.0-77.0); PLATELET COUNT (AUTO) 228 K/uL (130-400); RED BLOOD CELL COUNT(AUTO) 3.59 MIL/uL (4.50-6.20); WHITE BLOOD COUNT (AUTO) 22.6 K/uL (4.8-10.8)
[2021-07-12] MEDS: MIDAZOLAM 100MG-0.9% NS 100ML 100ML BAG IV SCH ×2 (04:34→17:55)
[2021-07-12 04:48] LABS: ALBUMIN 1.6 g/dL (3.5-5.0); BILIRUBIN,TOTAL 0.7 mg/dL (0.2-1.0); CREATININE 3.7 mg/dL (0.5-1.5); POTASSIUM 5.1 mmol/L (3.5-5.1)
[2021-07-12] MEDS: METRONIDAZOLE 500 MG TABLET PO SCH ×3 (06:25→21:04)
[2021-07-12] MEDS: INSULIN REGULAR, HUMAN 3ML 100 UNIT in 0.9%NACL 100ML 99 ML IV PRN ×4 (07:10→18:00)
[2021-07-12] MEDS ORDERED: FUROSEMIDE 40MG VIAL IV SCH (09:00)
[2021-07-12] MEDS: PANTOPRAZOLE 40 MG/VIAL IVP SCH (09:51)
[2021-07-12] MEDS: BALSAM PERU/CASTOR OIL 60 GM TUBE TP SCH (09:59)
[2021-07-12] MEDS: VECURONIUM 10MG/10ML IV PRN (11:03)
[2021-07-12] MEDS: DEXMEDETOMIDINE 400MCG/NS100ML IV PRN ×2 (15:02→20:36)
[2021-07-12] MEDS: ACETAMINOPHEN 325 MG TAB PO PRN (21:04)
[2021-07-13] VITALS (35 sets, daily range): BP systolic 86–156; BP diastolic 24–67
[2021-07-13] MEDS ORDERED: NOREPINEPHRIN 8MG/250ML NS PMX 250 ML IV ONE (00:37)
[2021-07-13] MEDS: ALBUTEROL 0.083% 2.5 MG/3 ML INH IH SCH ×4 (00:37→18:39)
[2021-07-13] MEDS ORDERED: NOREPINEPHRINE BITARTRATE 1 MG/1 ML ML IV ONE (00:37)
[2021-07-13] MEDS: BALSAM PERU/CASTOR OIL 60 GM TUBE TP SCH ×2 (01:00→08:21)
[2021-07-13] MEDS ORDERED: FENTANYL 2500MCG+NS 250ML 250 ML IV ONE (02:36)
[2021-07-13 03:20] LABS: ABG BASE EXCESS -4.3 mmol/L (-2.0-3.0); ABG OXYGEN SATURATION 91.9 % (95.0-99.0); ABG PCO2 45 mmHg (35-48)
[2021-07-13] MEDS: MEROPENEM 1 GM VIAL IVP SCH ×2 (03:30→14:37)
[2021-07-13] MEDS: HEPARIN 5,000 UNIT VIAL SQ SCH ×3 (03:32→16:06)
[2021-07-13] MEDS: VECURONIUM 10MG/10ML IV PRN ×2 (03:33→06:49)
[2021-07-13] MEDS: MIDAZOLAM 100MG-0.9% NS 100ML 100ML BAG IV SCH ×3 (03:43→23:07)
[2021-07-13] MEDS: DEXMEDETOMIDINE 400MCG/NS100ML IV PRN ×3 (03:47→20:16)
[2021-07-13 04:35] LABS: BASOPHILS % (AUTO) 0.2 % (0.0-5.0); EOSINOPHILS % (AUTO) 4.4 % (0.0-8.0); HEMATOCRIT 35.4 % (42-54); LYMPHOCYTES % (AUTO) 14.5 % (21.0-51.0); MEAN CORPUSCULAR HEMOGLOBIN 31.8 pg (27.0-33.0); MEAN CORPUSCULAR HGB CONC 30.8 g/dL (32.0-36.0); MEAN CORPUSCULAR VOLUME 103.2 fL (79-99); MONOCYTES % (AUTO) 9.8 % (3.0-13.0); NEUTROPHILS % (AUTO) 63.8 % (40.0-77.0); PLATELET COUNT (AUTO) 260 K/uL (130-400); RED BLOOD CELL COUNT(AUTO) 3.43 MIL/uL (4.50-6.20); RED CELL DISTRIBUTION WIDTH 13.1 % (11.0-15.5); WHITE BLOOD COUNT (AUTO) 22.9 K/uL (4.8-10.8)
[2021-07-13 04:57] LABS: ALBUMIN 1.7 g/dL (3.5-5.0); BILIRUBIN,TOTAL 0.5 mg/dL (0.2-1.0); CREATININE 3.9 mg/dL (0.5-1.5); POTASSIUM 4.6 mmol/L (3.5-5.1); TOTAL PROTEIN, SERUM 7.2 g/dL (6.0-8.3)
[2021-07-13] MEDS: METRONIDAZOLE 500 MG TABLET PO SCH ×3 (06:49→21:13)
[2021-07-13] MEDS: PANTOPRAZOLE 40 MG/VIAL IVP SCH (08:20)
[2021-07-13] MEDS ORDERED: 0.9%NACL 1000ML 1,000 ML IV ONE (12:23)
[2021-07-13] MEDS: FENTANYL 2500MCG+NS 250ML IV.SOLN IV SCH (20:27)
[2021-07-13] MEDS ORDERED: 0.9% NACL 500ML IV.SOLN 500 ML IV ONE (21:09)
[2021-07-13] MEDS: NOREPINEPHRINE BITARTRATE 32 MG in 0.9% NACL 250ML 250 ML IV SCH (21:12)
[2021-07-13] MEDS: VANCOMYCIN 1.75GM/250ML NS IV SCH ×2 (21:12)
[2021-07-13] MEDS: INSULIN REGULAR, HUMAN 3ML 100 UNIT in 0.9%NACL 100ML 99 ML IV PRN ×2 (21:15)
[2021-07-14] VITALS (51 sets, daily range): BP systolic 84–150; BP diastolic 35–77
[2021-07-14] MEDS: ALBUTEROL 0.083% 2.5 MG/3 ML INH IH SCH ×4 (00:27→19:27)
[2021-07-14] MEDS: VECURONIUM 10MG/10ML IV PRN ×2 (01:18→04:46)
[2021-07-14] MEDS: MEROPENEM 1 GM VIAL IVP SCH ×2 (01:18→15:24)
[2021-07-14] MEDS: HEPARIN 5,000 UNIT VIAL SQ SCH ×3 (01:23→18:08)
[2021-07-14 03:21] LABS: ABG BASE EXCESS -4.4 mmol/L (-2.0-3.0); ABG HCO3 23.3 mmol/L (21.0-28.0); ABG PCO2 53 mmHg (35-48)
[2021-07-14] MEDS: BALSAM PERU/CASTOR OIL 60 GM TUBE TP SCH ×3 (04:22→21:24)
[2021-07-14] MEDS: DEXMEDETOMIDINE 400MCG/NS100ML IV PRN ×2 (04:47→20:10)
[2021-07-14 05:06] LABS: BASOPHILS % (AUTO) 0.3 % (0.0-5.0); EOSINOPHILS % (AUTO) 3.4 % (0.0-8.0); HEMATOCRIT 35.3 % (42-54); LYMPHOCYTES % (AUTO) 10.1 % (21.0-51.0); MEAN CORPUSCULAR HEMOGLOBIN 31.6 pg (27.0-33.0); MEAN CORPUSCULAR HGB CONC 30.9 g/dL (32.0-36.0); MEAN CORPUSCULAR VOLUME 102.3 fL (79-99); NEUTROPHILS % (AUTO) 70.7 % (40.0-77.0); PLATELET COUNT (AUTO) 245 K/uL (130-400); RED BLOOD CELL COUNT(AUTO) 3.45 MIL/uL (4.50-6.20); WHITE BLOOD COUNT (AUTO) 25.2 K/uL (4.8-10.8)
[2021-07-14 05:26] LABS: ALBUMIN 1.7 g/dL (3.5-5.0); BILIRUBIN,TOTAL 0.5 mg/dL (0.2-1.0); CREATININE 3.5 mg/dL (0.5-1.5); POTASSIUM 5.6 mmol/L (3.5-5.1); TOTAL PROTEIN, SERUM 7.6 g/dL (6.0-8.3)
[2021-07-14] MEDS: METRONIDAZOLE 500 MG TABLET PO SCH ×3 (06:45→21:23)
[2021-07-14] MEDS ORDERED: KAYEXALATE 15GM/60ML PO SCH (09:05)
[2021-07-14] MEDS: PANTOPRAZOLE 40 MG/VIAL IVP SCH (09:52)
[2021-07-14] MEDS: ACETAMINOPHEN 325 MG TAB PO PRN ×2 (12:19→19:09)
[2021-07-14 14:04] LABS: INR 1.15 (0.85-1.15); PROTHROMBIN TIME 12.4 SEC (9.6-11.6)
[2021-07-14 14:05] LABS: PARTIAL THROMBOPLASTIN TIME 29.7 SEC (26.3-35.5)
[2021-07-14] MEDS: MIDAZOLAM 100MG-0.9% NS 100ML 100ML BAG IV SCH (19:13)
[2021-07-14] MEDS: FENTANYL 2500MCG+NS 250ML IV.SOLN IV SCH (19:14)
[2021-07-14] MEDS: INSULIN REGULAR, HUMAN 3ML 100 UNIT in 0.9%NACL 100ML 99 ML IV PRN ×2 (19:23)
[2021-07-14] MEDS: NOREPINEPHRINE BITARTRATE 32 MG in 0.9% NACL 250ML 250 ML IV SCH (22:22)
[2021-07-15] VITALS (57 sets, daily range): BP systolic 86–140; BP diastolic 41–60
[2021-07-15] MEDS: HEPARIN 5,000 UNIT VIAL SQ SCH ×3 (00:23→17:54)
[2021-07-15] MEDS: DEXMEDETOMIDINE 400MCG/NS100ML IV PRN (01:17)
[2021-07-15] MEDS: MEROPENEM 1 GM VIAL IVP SCH ×2 (01:28→14:12)
[2021-07-15 04:15] LABS: EOSINOPHILS % (AUTO) 2.9 % (0.0-8.0); HEMATOCRIT 34.6 % (42-54); LYMPHOCYTES % (AUTO) 14.5 % (21.0-51.0); MEAN CORPUSCULAR HGB CONC 31.2 g/dL (32.0-36.0); MEAN CORPUSCULAR VOLUME 102.7 fL (79-99); MONOCYTES % (AUTO) 9.3 % (3.0-13.0); NEUTROPHILS % (AUTO) 67.5 % (40.0-77.0); PLATELET COUNT (AUTO) 227 K/uL (130-400); RED BLOOD CELL COUNT(AUTO) 3.37 MIL/uL (4.50-6.20); RED CELL DISTRIBUTION WIDTH 12.9 % (11.0-15.5)
[2021-07-15] MEDS: MIDAZOLAM 100MG-0.9% NS 100ML 100ML BAG IV SCH (04:21)
[2021-07-15 04:47] LABS: ALBUMIN 1.8 g/dL (3.5-5.0); BILIRUBIN,TOTAL 0.5 mg/dL (0.2-1.0); CREATININE 3.6 mg/dL (0.5-1.5); PHOSPHORUS 8.9 mg/dL (2.5-4.9); POTASSIUM 4.9 mmol/L (3.5-5.1); THYROID STIMULATING HORMONE 0.81 uIU/mL (0.36-3.74); TOTAL PROTEIN, SERUM 7.5 g/dL (6.0-8.3)
[2021-07-15] MEDS: METRONIDAZOLE 500 MG TABLET PO SCH ×3 (05:40→21:10)
[2021-07-15] MEDS: ALBUTEROL 0.083% 2.5 MG/3 ML INH IH SCH ×4 (06:46→23:11)
[2021-07-15 09:05] LABS: ABG BASE EXCESS -4.6 mmol/L (-2.0-3.0); ABG HCO3 21.7 mmol/L (21.0-28.0); ABG OXYGEN SATURATION 93.2 % (95.0-99.0); ABG PCO2 45 mmHg (35-48)
[2021-07-15] MEDS: PANTOPRAZOLE 40 MG/VIAL IVP SCH (09:11)
[2021-07-15] MEDS: FENTANYL 2500MCG+NS 250ML IV.SOLN IV SCH (09:15)
[2021-07-15] MEDS: BALSAM PERU/CASTOR OIL 60 GM TUBE TP SCH ×2 (09:16→20:27)
[2021-07-15] MEDS: VANCOMYCIN 1.75GM/250ML NS IV SCH ×2 (20:27)
[2021-07-15] MEDS: INSULIN REGULAR, HUMAN 3ML 100 UNIT in 0.9%NACL 100ML 99 ML IV PRN ×2 (21:22)
[2021-07-16] VITALS (41 sets, daily range): BP systolic 108–169; BP diastolic 47–67
[2021-07-16] MEDS: HEPARIN 5,000 UNIT VIAL SQ SCH ×3 (01:08→17:56)
[2021-07-16] MEDS: MEROPENEM 1 GM VIAL IVP SCH ×2 (01:28→13:40)
[2021-07-16 04:13] LABS: ABG HCO3 19.5 mmol/L (21.0-28.0); ABG OXYGEN SATURATION 95.1 % (95.0-99.0); ABG PCO2 38 mmHg (35-48)
[2021-07-16 04:24] LABS: BASOPHILS % (AUTO) 0.9 % (0.0-5.0); EOSINOPHILS % (AUTO) 5.2 % (0.0-8.0); HEMATOCRIT 30.9 % (42-54); LYMPHOCYTES % (AUTO) 14.7 % (21.0-51.0); MEAN CORPUSCULAR HEMOGLOBIN 31.6 pg (27.0-33.0); MEAN CORPUSCULAR HGB CONC 31.1 g/dL (32.0-36.0); MEAN CORPUSCULAR VOLUME 101.6 fL (79-99); NEUTROPHILS % (AUTO) 66.3 % (40.0-77.0); PLATELET COUNT (AUTO) 213 K/uL (130-400); RED BLOOD CELL COUNT(AUTO) 3.04 MIL/uL (4.50-6.20); RED CELL DISTRIBUTION WIDTH 12.9 % (11.0-15.5); WHITE BLOOD COUNT (AUTO) 13.9 K/uL (4.8-10.8)
[2021-07-16 05:02] LABS: ALBUMIN 1.7 g/dL (3.5-5.0); BILIRUBIN,TOTAL 0.5 mg/dL (0.2-1.0); CREATININE 3.8 mg/dL (0.5-1.5); PHOSPHORUS 9.5 mg/dL (2.5-4.9); TOTAL PROTEIN, SERUM 6.8 g/dL (6.0-8.3)
[2021-07-16] MEDS: METRONIDAZOLE 500 MG TABLET PO SCH ×3 (05:43→22:00)
[2021-07-16] MEDS: ALBUTEROL 0.083% 2.5 MG/3 ML INH IH SCH ×4 (06:59→23:40)
[2021-07-16] MEDS: PANTOPRAZOLE 40 MG/VIAL IVP SCH (08:55)
[2021-07-16] MEDS: BALSAM PERU/CASTOR OIL 60 GM TUBE TP SCH ×2 (09:00→21:00)
[2021-07-16 11:05] LABS: ABG BASE EXCESS -1.3 mmol/L (-2.0-3.0); ABG HCO3 23.6 mmol/L (21.0-28.0); ABG OXYGEN SATURATION 95.9 % (95.0-99.0); ABG PCO2 40 mmHg (35-48)
[2021-07-16] MEDS ORDERED: 0.9%NACL 1000ML 1,000 ML IV ONE ×2 (15:23→18:52)
[2021-07-17] VITALS (29 sets, daily range): BP systolic 96–157; BP diastolic 31–82
[2021-07-17] MEDS ORDERED: PROPOFOL 1000 MG/100 ML 100 ML IV ONE (00:54)
[2021-07-17] MEDS ORDERED: PROPOFOL 1000 MG/100 ML IV PRN (01:00)
[2021-07-17] MEDS: HEPARIN 5,000 UNIT VIAL SQ SCH ×3 (01:13→17:00)
[2021-07-17] MEDS: MEROPENEM 1 GM VIAL IVP SCH ×2 (02:30→12:42)
[2021-07-17 03:58] LABS: BASOPHILS % (AUTO) 1.1 % (0.0-5.0); EOSINOPHILS % (AUTO) 6.5 % (0.0-8.0); HEMATOCRIT 33.3 % (42-54); LYMPHOCYTES % (AUTO) 15.5 % (21.0-51.0); MEAN CORPUSCULAR HEMOGLOBIN 31.5 pg (27.0-33.0); MEAN CORPUSCULAR HGB CONC 30.9 g/dL (32.0-36.0); MEAN CORPUSCULAR VOLUME 101.8 fL (79-99); MONOCYTES % (AUTO) 8.4 % (3.0-13.0); PLATELET COUNT (AUTO) 195 K/uL (130-400); RED BLOOD CELL COUNT(AUTO) 3.27 MIL/uL (4.50-6.20); RED CELL DISTRIBUTION WIDTH 12.8 % (11.0-15.5); WHITE BLOOD COUNT (AUTO) 13.8 K/uL (4.8-10.8)
[2021-07-17 04:37] LABS: BILIRUBIN,TOTAL 0.6 mg/dL (0.2-1.0); CREATININE 2.5 mg/dL (0.5-1.5); POTASSIUM 3.5 mmol/L (3.5-5.1); TOTAL PROTEIN, SERUM 7.7 g/dL (6.0-8.3)
[2021-07-17] MEDS: METRONIDAZOLE 500 MG TABLET PO SCH ×3 (06:52→21:18)
[2021-07-17 07:25] LABS: ABG BASE EXCESS -0.6 mmol/L (-2.0-3.0); ABG HCO3 24.2 mmol/L (21.0-28.0); ABG OXYGEN SATURATION 96.1 % (95.0-99.0); ABG PCO2 40 mmHg (35-48)
[2021-07-17] MEDS: ALBUTEROL 0.083% 2.5 MG/3 ML INH IH SCH ×4 (07:25→23:39)
[2021-07-17] MEDS: PANTOPRAZOLE 40 MG/VIAL IVP SCH (08:18)
[2021-07-17] MEDS: BALSAM PERU/CASTOR OIL 60 GM TUBE TP SCH ×2 (09:48→21:19)
[2021-07-17] MEDS: DEXMEDETOMIDINE 400MCG/NS100ML IV PRN ×2 (15:19→19:34)
[2021-07-17] MEDS: VANCOMYCIN 1.75GM/250ML NS IV SCH ×2 (16:03)
[2021-07-17] MEDS: LACTULOSE 20 GM/30 ML UDCUP PO SCH (21:18)
[2021-07-18] VITALS (57 sets, daily range): BP systolic 85–179; BP diastolic 34–72
[2021-07-18] MEDS: INSULIN HUMULIN R 100 UNIT/ML 3ML SQ SCH ×4 (00:16→12:00)
[2021-07-18] MEDS: HEPARIN 5,000 UNIT VIAL SQ SCH ×3 (00:19→13:24)
[2021-07-18] MEDS: MEROPENEM 1 GM VIAL IVP SCH ×2 (02:25→13:15)
[2021-07-18 04:35] LABS: MYOGLOBIN 441 ng/mL (10-92)
[2021-07-18 04:42] LABS: CREATINE KINASE, TOTAL 747 U/L (21-232)
[2021-07-18] MEDS ORDERED: NOREPINEPHRIN 8MG/250ML NS PMX 250 ML IV ONE (04:57)
[2021-07-18] MEDS ORDERED: NOREPINEPHRINE 8MG/NS 250ML PREMIX IV SCH (05:00)
[2021-07-18] MEDS: METRONIDAZOLE 500 MG TABLET PO SCH ×3 (05:34→22:00)
[2021-07-18] MEDS: DEXMEDETOMIDINE 400MCG/NS100ML IV PRN ×2 (05:47→07:46)
[2021-07-18] MEDS: ALBUTEROL 0.083% 2.5 MG/3 ML INH IH SCH ×3 (06:26→22:09)
[2021-07-18 06:48] LABS: ABG BASE EXCESS -0.7 mmol/L (-2.0-3.0); ABG HCO3 23.9 mmol/L (21.0-28.0); ABG OXYGEN SATURATION 94.1 % (95.0-99.0); ABG PCO2 39 mmHg (35-48)
[2021-07-18 07:50] LABS: EOSINOPHILS % (AUTO) 5.4 % (0.0-8.0); HEMATOCRIT 30.8 % (42-54); LYMPHOCYTES % (AUTO) 17.3 % (21.0-51.0); MEAN CORPUSCULAR HEMOGLOBIN 31.1 pg (27.0-33.0); MEAN CORPUSCULAR HGB CONC 31.5 g/dL (32.0-36.0); MEAN CORPUSCULAR VOLUME 98.7 fL (79-99); MONOCYTES % (AUTO) 9.2 % (3.0-13.0); NEUTROPHILS % (AUTO) 63.7 % (40.0-77.0); PLATELET COUNT (AUTO) 196 K/uL (130-400); RED BLOOD CELL COUNT(AUTO) 3.12 MIL/uL (4.50-6.20); RED CELL DISTRIBUTION WIDTH 12.6 % (11.0-15.5); WHITE BLOOD COUNT (AUTO) 9.6 K/uL (4.8-10.8)
[2021-07-18 08:33] LABS: BILIRUBIN,TOTAL 0.6 mg/dL (0.2-1.0); CREATININE 2.6 mg/dL (0.5-1.5); POTASSIUM 3.2 mmol/L (3.5-5.1); TOTAL PROTEIN, SERUM 7.3 g/dL (6.0-8.3)
[2021-07-18] MEDS: LACTULOSE 20 GM/30 ML UDCUP PO SCH ×2 (09:00→22:00)
[2021-07-18] MEDS: BALSAM PERU/CASTOR OIL 60 GM TUBE TP SCH ×2 (09:00→22:00)
[2021-07-18] MEDS: PANTOPRAZOLE 40 MG/VIAL IVP SCH (13:15)
[2021-07-19] VITALS (24 sets, daily range): BP systolic -2–186; BP diastolic -2–81
[2021-07-19] MEDS ORDERED: HYDRALAZINE 20MG/ML VIAL IV PRN
[2021-07-19] MEDS: HEPARIN 5,000 UNIT VIAL SQ SCH ×3 (02:00→18:45)
[2021-07-19] MEDS: INSULIN HUMULIN R 100 UNIT/ML 3ML SQ SCH ×5 (06:00→23:20)
[2021-07-19] MEDS: METRONIDAZOLE 500 MG TABLET PO SCH ×3 (07:01→21:45)
[2021-07-19] MEDS: ALBUTEROL 0.083% 2.5 MG/3 ML INH IH SCH ×3 (07:01→22:58)
[2021-07-19] MEDS: LACTULOSE 20 GM/30 ML UDCUP PO SCH (07:31)
[2021-07-19 07:43] LABS: BASOPHILS % (AUTO) 1.2 % (0.0-5.0); EOSINOPHILS % (AUTO) 2.8 % (0.0-8.0); HEMATOCRIT 32.7 % (42-54); LYMPHOCYTES % (AUTO) 16.9 % (21.0-51.0); MEAN CORPUSCULAR HEMOGLOBIN 31.6 pg (27.0-33.0); MEAN CORPUSCULAR HGB CONC 32.1 g/dL (32.0-36.0); MEAN CORPUSCULAR VOLUME 98.5 fL (79-99); MONOCYTES % (AUTO) 8.8 % (3.0-13.0); NEUTROPHILS % (AUTO) 66.1 % (40.0-77.0); PLATELET COUNT (AUTO) 184 K/uL (130-400); RED BLOOD CELL COUNT(AUTO) 3.32 MIL/uL (4.50-6.20); RED CELL DISTRIBUTION WIDTH 12.9 % (11.0-15.5); WHITE BLOOD COUNT (AUTO) 12.4 K/uL (4.8-10.8)
[2021-07-19 08:22] LABS: ALBUMIN 2.2 g/dL (3.5-5.0); BILIRUBIN,TOTAL 0.6 mg/dL (0.2-1.0); CREATININE 2.6 mg/dL (0.5-1.5); POTASSIUM 3.6 mmol/L (3.5-5.1)
[2021-07-19] MEDS: PANTOPRAZOLE 40 MG/VIAL IVP SCH (09:31)
[2021-07-19] MEDS: BALSAM PERU/CASTOR OIL 60 GM TUBE TP SCH ×2 (09:45→20:45)
[2021-07-19] MEDS: ACETAMINOPHEN 325 MG TAB PO PRN ×2 (09:48→14:17)
[2021-07-19] MEDS ORDERED: METOPROLOL TARTRATE 25 MG TAB PO ONE (11:30)
[2021-07-19] MEDS: METOPROLOL TARTRATE 25 MG TAB PO SCH ×2 (14:06→20:46)
[2021-07-19] MEDS ORDERED: HYDROMORPHONE 2 MG VIAL (2MG/ML) ONE (21:36)
[2021-07-19] MEDS ORDERED: HYDROMORPHONE 2 MG VIAL (2MG/ML) IVP PRN (22:00)
[2021-07-20] VITALS (7 sets, daily range): BP systolic 114–143; BP diastolic 58–83
[2021-07-20] MEDS: HEPARIN 5,000 UNIT VIAL SQ SCH ×4 (01:35→23:45)
[2021-07-20 03:56] LABS: BASOPHILS % (AUTO) 0.9 % (0.0-5.0); EOSINOPHILS % (AUTO) 4.4 % (0.0-8.0); HEMATOCRIT 32.5 % (42-54); LYMPHOCYTES % (AUTO) 16.9 % (21.0-51.0); MEAN CORPUSCULAR HEMOGLOBIN 31.5 pg (27.0-33.0); MEAN CORPUSCULAR HGB CONC 32.3 g/dL (32.0-36.0); MEAN CORPUSCULAR VOLUME 97.6 fL (79-99); MONOCYTES % (AUTO) 8.2 % (3.0-13.0); PLATELET COUNT (AUTO) 204 K/uL (130-400); RED BLOOD CELL COUNT(AUTO) 3.33 MIL/uL (4.50-6.20); RED CELL DISTRIBUTION WIDTH 13.1 % (11.0-15.5); WHITE BLOOD COUNT (AUTO) 14.1 K/uL (4.8-10.8)
[2021-07-20 04:10] LABS: ALBUMIN 2.2 g/dL (3.5-5.0); BILIRUBIN,TOTAL 0.7 mg/dL (0.2-1.0); CREATININE 2.3 mg/dL (0.5-1.5); POTASSIUM 3.8 mmol/L (3.5-5.1); TOTAL PROTEIN, SERUM 7.7 g/dL (6.0-8.3)
[2021-07-20] MEDS: METRONIDAZOLE 500 MG TABLET PO SCH ×3 (05:04→21:24)
[2021-07-20] MEDS: INSULIN HUMULIN R 100 UNIT/ML 3ML SQ SCH ×4 (06:00→23:44)
[2021-07-20] MEDS: ALBUTEROL 0.083% 2.5 MG/3 ML INH IH SCH ×3 (06:36→22:52)
[2021-07-20] MEDS ORDERED: LACTULOSE 20 GM/30 ML UDCUP PO SCH (09:00)
[2021-07-20] MEDS: BALSAM PERU/CASTOR OIL 60 GM TUBE TP SCH ×2 (09:00→21:24)
[2021-07-20] MEDS: PANTOPRAZOLE 40 MG/VIAL IVP SCH (09:49)
[2021-07-20] MEDS: ACETAMINOPHEN 325 MG TAB PO PRN ×2 (10:19→15:28)
[2021-07-20] MEDS: METOPROLOL TARTRATE 25 MG TAB PO SCH ×2 (10:19→21:22)
[2021-07-20] MEDS ORDERED: LOPERAMIDE HCL 2 MG CAP PO SCH (17:00)
[2021-07-21] MEDS ORDERED: DEXTROSE 50%-WATER 50 ML DISP.SYRIN IV PRN (00:30)
[2021-07-21] MEDS ORDERED: GLUCAGON 1MG KIT 1 MG ML IM PRN (00:30)
[2021-07-21] MEDS ORDERED: ALTEPLASE 2MG VIAL 2 MG/VIAL VIAL IVCATH ONE (02:00)
[2021-07-21 03:34] VITALS: BP 134/73
[2021-07-21 03:56] LABS: BASOPHILS % (AUTO) 0.6 % (0.0-5.0); EOSINOPHILS % (AUTO) 5.2 % (0.0-8.0); HEMATOCRIT 30.2 % (42-54); LYMPHOCYTES % (AUTO) 17.4 % (21.0-51.0); MEAN CORPUSCULAR HEMOGLOBIN 31.4 pg (27.0-33.0); MEAN CORPUSCULAR HGB CONC 33.1 g/dL (32.0-36.0); MONOCYTES % (AUTO) 9.4 % (3.0-13.0); NEUTROPHILS % (AUTO) 66.1 % (40.0-77.0); PLATELET COUNT (AUTO) 195 K/uL (130-400); RED BLOOD CELL COUNT(AUTO) 3.18 MIL/uL (4.50-6.20); RED CELL DISTRIBUTION WIDTH 12.9 % (11.0-15.5)
[2021-07-21 04:13] LABS: CREATININE 2.2 mg/dL (0.5-1.5); PHOSPHORUS 5.7 mg/dL (2.5-4.9); POTASSIUM 3.6 mmol/L (3.5-5.1)
[2021-07-21] MEDS: METRONIDAZOLE 500 MG TABLET PO SCH ×3 (05:39→21:32)
[2021-07-21] MEDS: INSULIN HUMULIN R 100 UNIT/ML 3ML SQ SCH ×4 (06:28→19:53)
[2021-07-21] MEDS: ALBUTEROL 0.083% 2.5 MG/3 ML INH IH SCH ×3 (06:52→22:30)
[2021-07-21 08:25] VITALS: BP 141/76
[2021-07-21] MEDS: ACETAMINOPHEN 325 MG TAB PO PRN ×3 (10:02→19:49)
[2021-07-21] MEDS: PANTOPRAZOLE 40 MG/VIAL IVP SCH (10:03)
[2021-07-21] MEDS: METOPROLOL TARTRATE 25 MG TAB PO SCH ×2 (10:03→19:48)
[2021-07-21] MEDS: HEPARIN 5,000 UNIT VIAL SQ SCH ×2 (10:04→14:26)
[2021-07-21] MEDS: BALSAM PERU/CASTOR OIL 60 GM TUBE TP SCH ×2 (10:20→21:31)
[2021-07-21 10:48] VITALS: BP 144/63
[2021-07-21 16:18] VITALS: BP 114/54
[2021-07-21 19:40] VITALS: BP 135/83
[2021-07-21 23:59] VITALS: BP 105/50
[2021-07-22] MEDS: HEPARIN 5,000 UNIT VIAL SQ SCH ×3 (00:54→16:41)
[2021-07-22] MEDS: ACETAMINOPHEN 325 MG TAB PO PRN ×3 (02:20→21:04)
[2021-07-22 04:18] VITALS: BP 115/61
[2021-07-22 04:41] LABS: CREATININE 1.9 mg/dL (0.5-1.5); POTASSIUM 3.6 mmol/L (3.5-5.1)
[2021-07-22] MEDS: METRONIDAZOLE 500 MG TABLET PO SCH ×3 (05:01→20:42)
[2021-07-22] MEDS: INSULIN HUMULIN R 100 UNIT/ML 3ML SQ SCH ×4 (06:12→20:42)
[2021-07-22] MEDS: ALBUTEROL 0.083% 2.5 MG/3 ML INH IH SCH ×3 (07:24→22:26)
[2021-07-22 08:00] VITALS: BP 151/76
[2021-07-22] MEDS: METOPROLOL TARTRATE 25 MG TAB PO SCH ×2 (09:50→20:39)
[2021-07-22] MEDS: PANTOPRAZOLE 40 MG/VIAL IVP SCH (09:50)
[2021-07-22] MEDS: BALSAM PERU/CASTOR OIL 60 GM TUBE TP SCH ×2 (09:58→20:40)
[2021-07-22] MEDS ORDERED: GUAIFENESIN-DM 200/20 MG 10 ML PO PRN (11:00)
[2021-07-22 12:26] VITALS: BP 131/79
[2021-07-22 16:30] VITALS: BP 119/61
[2021-07-22 20:00] VITALS: BP 144/69
[2021-07-23] VITALS (7 sets, daily range): BP systolic 122–164; BP diastolic 58–92
[2021-07-23] MEDS: HEPARIN 5,000 UNIT VIAL SQ SCH ×3 (00:53→17:39)
[2021-07-23] MEDS: ACETAMINOPHEN 325 MG TAB PO PRN ×5 (00:54→21:04)
[2021-07-23] MEDS: METRONIDAZOLE 500 MG TABLET PO SCH ×3 (05:30→21:00)
[2021-07-23] MEDS: INSULIN HUMULIN R 100 UNIT/ML 3ML SQ SCH ×4 (06:34→21:00)
[2021-07-23 08:10] LABS: BASOPHILS % (AUTO) 0.7 % (0.0-5.0); EOSINOPHILS % (AUTO) 5.9 % (0.0-8.0); HEMATOCRIT 30.7 % (42-54); LYMPHOCYTES % (AUTO) 21.5 % (21.0-51.0); MEAN CORPUSCULAR HEMOGLOBIN 32.1 pg (27.0-33.0); MEAN CORPUSCULAR HGB CONC 33.2 g/dL (32.0-36.0); MEAN CORPUSCULAR VOLUME 96.5 fL (79-99); NEUTROPHILS % (AUTO) 59.3 % (40.0-77.0); PLATELET COUNT (AUTO) 210 K/uL (130-400); RED BLOOD CELL COUNT(AUTO) 3.18 MIL/uL (4.50-6.20); RED CELL DISTRIBUTION WIDTH 13.1 % (11.0-15.5); WHITE BLOOD COUNT (AUTO) 9.4 K/uL (4.8-10.8)
[2021-07-23 08:38] LABS: CREATININE 1.7 mg/dL (0.5-1.5); POTASSIUM 3.6 mmol/L (3.5-5.1)
[2021-07-23] MEDS: ALBUTEROL 0.083% 2.5 MG/3 ML INH IH SCH ×3 (08:51→22:04)
[2021-07-23] MEDS: PANTOPRAZOLE 40 MG/VIAL IVP SCH (10:29)
[2021-07-23] MEDS: METOPROLOL TARTRATE 25 MG TAB PO SCH ×2 (10:30→21:00)
[2021-07-23] MEDS: BALSAM PERU/CASTOR OIL 60 GM TUBE TP SCH ×2 (10:50→21:04)
[2021-07-24] MEDS: HEPARIN 5,000 UNIT VIAL SQ SCH ×2 (00:28→08:44)
[2021-07-24 03:14] VITALS: BP 135/76
[2021-07-24] MEDS: ACETAMINOPHEN 325 MG TAB PO PRN ×3 (04:07→12:20)
[2021-07-24] MEDS: METRONIDAZOLE 500 MG TABLET PO SCH ×3 (05:47→21:33)
[2021-07-24] MEDS: INSULIN HUMULIN R 100 UNIT/ML 3ML SQ SCH ×3 (06:37→21:00)
[2021-07-24] MEDS: ALBUTEROL 0.083% 2.5 MG/3 ML INH IH SCH ×3 (06:50→18:44)
[2021-07-24] MEDS: PANTOPRAZOLE 40 MG/VIAL IVP SCH (08:28)
[2021-07-24] MEDS: METOPROLOL TARTRATE 25 MG TAB PO SCH ×2 (08:30→21:33)
[2021-07-24 08:33] VITALS: BP 143/71
[2021-07-24] MEDS: BALSAM PERU/CASTOR OIL 60 GM TUBE TP SCH ×2 (09:34→21:33)
[2021-07-24 12:30] VITALS: BP 135/72
[2021-07-24 16:59] VITALS: BP 149/65
[2021-07-24 20:18] VITALS: BP 155/87
[2021-07-24 23:47] VITALS: BP 107/67
[2021-07-25] MEDS: ALBUTEROL 0.083% 2.5 MG/3 ML INH IH SCH (03:09)
[2021-07-25 03:55] VITALS: BP 144/72
[2021-07-25] MEDS: INSULIN HUMULIN R 100 UNIT/ML 3ML SQ SCH ×4 (05:21→21:39)
[2021-07-25] MEDS: METRONIDAZOLE 500 MG TABLET PO SCH ×2 (06:29→13:57)
[2021-07-25 07:02] LABS: EOSINOPHILS % (AUTO) 7.6 % (0.0-8.0); HEMATOCRIT 30.2 % (42-54); LYMPHOCYTES % (AUTO) 19.8 % (21.0-51.0); MEAN CORPUSCULAR HEMOGLOBIN 31.2 pg (27.0-33.0); MEAN CORPUSCULAR HGB CONC 32.1 g/dL (32.0-36.0); MEAN CORPUSCULAR VOLUME 97.1 fL (79-99); MONOCYTES % (AUTO) 11.9 % (3.0-13.0); NEUTROPHILS % (AUTO) 59.3 % (40.0-77.0); PLATELET COUNT (AUTO) 207 K/uL (130-400); RED BLOOD CELL COUNT(AUTO) 3.11 MIL/uL (4.50-6.20); RED CELL DISTRIBUTION WIDTH 13.2 % (11.0-15.5); WHITE BLOOD COUNT (AUTO) 9.2 K/uL (4.8-10.8)
[2021-07-25 07:12] LABS: HEMOGLOBIN A1C 9.3 % (4.0-6.0)
[2021-07-25 07:13] LABS: % IRON SATURATION 40.2 % (30-44)
[2021-07-25 07:41] LABS: ALBUMIN 2.2 g/dL (3.5-5.0); BILIRUBIN,TOTAL 0.6 mg/dL (0.2-1.0); CREATININE 1.4 mg/dL (0.5-1.5); POTASSIUM 3.5 mmol/L (3.5-5.1); TOTAL PROTEIN, SERUM 7.2 g/dL (6.0-8.3)
[2021-07-25 07:56] VITALS: BP 121/74
[2021-07-25] MEDS: LEVOFLOXACIN 750 MG TABLET PO SCH (08:16)
[2021-07-25] MEDS: LACTOBACILLUS RHAMNOSUS GG 1 EACH CAP.SPRINK PO SCH ×2 (08:16→21:25)
[2021-07-25] MEDS: METOPROLOL TARTRATE 50 MG TAB PO SCH ×2 (08:16→21:26)
[2021-07-25] MEDS: FAMOTIDINE 20MG TAB PO SCH ×2 (08:16→21:26)
[2021-07-25] MEDS: BALSAM PERU/CASTOR OIL 60 GM TUBE TP SCH ×2 (08:17→21:34)
[2021-07-25] MEDS: ENOXAPARIN SODIUM 40 MG/0.4 ML SYRINGE SQ SCH (08:17)
[2021-07-25] MEDS: LOPERAMIDE HCL 2 MG CAP PO PRN ×2 (10:55→12:46)
[2021-07-25] MEDS: ACETAMINOPHEN 325 MG TAB PO PRN ×3 (10:55→21:38)
[2021-07-25 11:54] VITALS: BP 153/72
[2021-07-25] MEDS ORDERED: ALBUTEROL 0.083% 2.5 MG/3 ML INH IH PRN (13:30)
[2021-07-25 15:23] VITALS: BP 142/76
[2021-07-25 20:22] VITALS: BP 137/71
[2021-07-25] MEDS ORDERED: ATORVASTATIN 20 MG TABLET PO SCH (21:00)
[2021-07-25] MEDS: ATORVASTATIN 40 MG TABLET PO SCH (21:26)
[2021-07-25 23:48] VITALS: BP 109/48
[2021-07-26 03:53] VITALS: BP 127/65
[2021-07-26 05:22] LABS: BASOPHILS % (AUTO) 1.2 % (0.0-5.0); EOSINOPHILS % (AUTO) 10.8 % (0.0-8.0); HEMATOCRIT 29.9 % (42-54); LYMPHOCYTES % (AUTO) 21.5 % (21.0-51.0); MEAN CORPUSCULAR HEMOGLOBIN 31.5 pg (27.0-33.0); MEAN CORPUSCULAR HGB CONC 32.8 g/dL (32.0-36.0); MEAN CORPUSCULAR VOLUME 96.1 fL (79-99); MONOCYTES % (AUTO) 13.1 % (3.0-13.0); NEUTROPHILS % (AUTO) 52.7 % (40.0-77.0); PLATELET COUNT (AUTO) 236 K/uL (130-400); RED BLOOD CELL COUNT(AUTO) 3.11 MIL/uL (4.50-6.20); RED CELL DISTRIBUTION WIDTH 13.2 % (11.0-15.5); WHITE BLOOD COUNT (AUTO) 8.3 K/uL (4.8-10.8)
[2021-07-26 05:46] LABS: ALBUMIN 2.4 g/dL (3.5-5.0); BILIRUBIN,TOTAL 0.6 mg/dL (0.2-1.0); CREATININE 1.6 mg/dL (0.5-1.5); POTASSIUM 3.6 mmol/L (3.5-5.1); TOTAL PROTEIN, SERUM 7.2 g/dL (6.0-8.3)
[2021-07-26] MEDS: INSULIN HUMULIN R 100 UNIT/ML 3ML SQ SCH ×5 (05:56→21:00)
[2021-07-26] MEDS ORDERED: LOPERAMIDE HCL 2 MG CAP PO ONE (07:00)
[2021-07-26 08:13] VITALS: BP 146/76
[2021-07-26] MEDS: LACTOBACILLUS RHAMNOSUS GG 1 EACH CAP.SPRINK PO SCH ×2 (10:21→19:56)
[2021-07-26] MEDS: LEVOFLOXACIN 750 MG TABLET PO SCH (10:21)
[2021-07-26] MEDS: METOPROLOL TARTRATE 50 MG TAB PO SCH ×2 (10:21→19:56)
[2021-07-26] MEDS: FAMOTIDINE 20MG TAB PO SCH ×2 (10:21→19:57)
[2021-07-26] MEDS: ENOXAPARIN SODIUM 40 MG/0.4 ML SYRINGE SQ SCH (10:22)
[2021-07-26] MEDS: BALSAM PERU/CASTOR OIL 60 GM TUBE TP SCH ×2 (10:26→19:57)
[2021-07-26 11:46] VITALS: BP 114/58
[2021-07-26] MEDS: ACETAMINOPHEN 325 MG TAB PO PRN ×2 (14:41→20:06)
[2021-07-26 16:23] VITALS: BP 149/70
[2021-07-26] MEDS: ATORVASTATIN 40 MG TABLET PO SCH (19:56)
[2021-07-26 20:11] VITALS: BP 123/55
[2021-07-26 23:36] VITALS: BP 101/53
[2021-07-27 03:13] VITALS: BP 115/58
[2021-07-27] MEDS: ACETAMINOPHEN 325 MG TAB PO PRN ×4 (03:24→21:05)
[2021-07-27 05:04] LABS: BASOPHILS % (AUTO) 1.4 % (0.0-5.0); EOSINOPHILS % (AUTO) 12.8 % (0.0-8.0); LYMPHOCYTES % (AUTO) 29.3 % (21.0-51.0); MEAN CORPUSCULAR HEMOGLOBIN 31.6 pg (27.0-33.0); MEAN CORPUSCULAR HGB CONC 32.3 g/dL (32.0-36.0); MEAN CORPUSCULAR VOLUME 97.7 fL (79-99); MONOCYTES % (AUTO) 12.1 % (3.0-13.0); NEUTROPHILS % (AUTO) 43.9 % (40.0-77.0); PLATELET COUNT (AUTO) 208 K/uL (130-400); RED BLOOD CELL COUNT(AUTO) 3.07 MIL/uL (4.50-6.20); RED CELL DISTRIBUTION WIDTH 13.2 % (11.0-15.5); WHITE BLOOD COUNT (AUTO) 7.4 K/uL (4.8-10.8)
[2021-07-27 05:25] LABS: ALBUMIN 2.3 g/dL (3.5-5.0); BILIRUBIN,TOTAL 0.5 mg/dL (0.2-1.0); CREATININE 1.5 mg/dL (0.5-1.5); POTASSIUM 3.6 mmol/L (3.5-5.1); TOTAL PROTEIN, SERUM 7.1 g/dL (6.0-8.3)
[2021-07-27] MEDS: INSULIN HUMULIN R 100 UNIT/ML 3ML SQ SCH ×4 (06:09→21:00)
[2021-07-27 08:00] VITALS: BP 127/61
[2021-07-27] MEDS: METOPROLOL TARTRATE 50 MG TAB PO SCH ×2 (09:35→21:03)
[2021-07-27] MEDS: LACTOBACILLUS RHAMNOSUS GG 1 EACH CAP.SPRINK PO SCH ×2 (09:35→21:03)
[2021-07-27] MEDS: FENOFIBRATE NANOCRYSTALLIZED 145 MG TAB PO SCH (09:35)
[2021-07-27] MEDS: LEVOFLOXACIN 750 MG TABLET PO SCH (09:35)
[2021-07-27] MEDS: FAMOTIDINE 20MG TAB PO SCH ×2 (09:35→21:04)
[2021-07-27] MEDS: ENOXAPARIN SODIUM 40 MG/0.4 ML SYRINGE SQ SCH (09:36)
[2021-07-27] MEDS: BALSAM PERU/CASTOR OIL 60 GM TUBE TP SCH ×2 (09:36→21:07)
[2021-07-27 12:00] VITALS: BP 115/61
[2021-07-27] MEDS ORDERED: GADOTERATE MEGLUMINE 10 MMOL/20 ML VIAL IV ONE (12:47)
[2021-07-27 16:00] VITALS: BP 114/55
[2021-07-27 20:16] VITALS: BP 153/63
[2021-07-27] MEDS: ATORVASTATIN 40 MG TABLET PO SCH (21:03)
[2021-07-28 00:20] VITALS: BP 121/57
[2021-07-28 04:20] VITALS: BP 143/65
[2021-07-28 05:23] LABS: BASOPHILS % (AUTO) 1.1 % (0.0-5.0); EOSINOPHILS % (AUTO) 13.1 % (0.0-8.0); HEMATOCRIT 27.1 % (42-54); LYMPHOCYTES % (AUTO) 27.5 % (21.0-51.0); MEAN CORPUSCULAR HEMOGLOBIN 31.4 pg (27.0-33.0); MEAN CORPUSCULAR HGB CONC 32.5 g/dL (32.0-36.0); MEAN CORPUSCULAR VOLUME 96.8 fL (79-99); MONOCYTES % (AUTO) 12.7 % (3.0-13.0); NEUTROPHILS % (AUTO) 45.1 % (40.0-77.0); PLATELET COUNT (AUTO) 203 K/uL (130-400); WHITE BLOOD COUNT (AUTO) 7.3 K/uL (4.8-10.8)
[2021-07-28] MEDS: INSULIN HUMULIN R 100 UNIT/ML 3ML SQ SCH ×3 (05:26→20:50)
[2021-07-28 06:33] LABS: CREATININE 1.4 mg/dL (0.5-1.5); MAGNESIUM 1.7 mg/dL (1.80-2.40); PHOSPHORUS 5.3 mg/dL (2.5-4.9); POTASSIUM 3.6 mmol/L (3.5-5.1); THYROID STIMULATING HORMONE 4.52 uIU/mL (0.36-3.74)
[2021-07-28 09:27] VITALS: BP 125/65
[2021-07-28] MEDS: FENOFIBRATE NANOCRYSTALLIZED 145 MG TAB PO SCH (09:39)
[2021-07-28] MEDS: LEVOFLOXACIN 750 MG TABLET PO SCH (09:39)
[2021-07-28] MEDS: METOPROLOL TARTRATE 50 MG TAB PO SCH ×2 (09:39→20:55)
[2021-07-28] MEDS: FAMOTIDINE 20MG TAB PO SCH ×2 (09:39→20:55)
[2021-07-28] MEDS: LACTOBACILLUS RHAMNOSUS GG 1 EACH CAP.SPRINK PO SCH ×2 (09:39→20:55)
[2021-07-28] MEDS: ACETAMINOPHEN 325 MG TAB PO PRN ×3 (09:40→21:03)
[2021-07-28] MEDS: ENOXAPARIN SODIUM 40 MG/0.4 ML SYRINGE SQ SCH (09:41)
[2021-07-28] MEDS: BALSAM PERU/CASTOR OIL 60 GM TUBE TP SCH ×2 (09:41→21:00)
[2021-07-28 12:00] VITALS: BP 100/44
[2021-07-28] MEDS ORDERED: GADOTERATE MEGLUMINE 10 MMOL/20 ML VIAL IV ONE (13:29)
[2021-07-28] MEDS: FOLIC ACID 5 MG/ML VIAL IV SCH (14:40)
[2021-07-28 18:52] VITALS: BP 138/71
[2021-07-28 20:16] VITALS: BP 151/77
[2021-07-28] MEDS: ATORVASTATIN 40 MG TABLET PO SCH (20:54)
[2021-07-29 00:20] VITALS: BP 112/48
[2021-07-29 04:20] VITALS: BP 125/74
[2021-07-29 05:08] LABS: BASOPHILS % (AUTO) 1.1 % (0.0-5.0); EOSINOPHILS % (AUTO) 13.3 % (0.0-8.0); HEMATOCRIT 27.4 % (42-54); LYMPHOCYTES % (AUTO) 34.2 % (21.0-51.0); MEAN CORPUSCULAR HEMOGLOBIN 31.7 pg (27.0-33.0); MEAN CORPUSCULAR HGB CONC 32.8 g/dL (32.0-36.0); MEAN CORPUSCULAR VOLUME 96.5 fL (79-99); MONOCYTES % (AUTO) 11.2 % (3.0-13.0); NEUTROPHILS % (AUTO) 39.7 % (40.0-77.0); PLATELET COUNT (AUTO) 175 K/uL (130-400); RED BLOOD CELL COUNT(AUTO) 2.84 MIL/uL (4.50-6.20); WHITE BLOOD COUNT (AUTO) 6.2 K/uL (4.8-10.8)
[2021-07-29 05:24] LABS: CREATININE 1.3 mg/dL (0.5-1.5); POTASSIUM 3.9 mmol/L (3.5-5.1)
[2021-07-29] MEDS: INSULIN HUMULIN R 100 UNIT/ML 3ML SQ SCH ×4 (06:37→20:30)
[2021-07-29 07:25] VITALS: BP 114/40
[2021-07-29] MEDS: FAMOTIDINE 20MG TAB PO SCH ×2 (08:40→20:22)
[2021-07-29] MEDS: LEVOFLOXACIN 750 MG TABLET PO SCH (08:40)
[2021-07-29] MEDS: METOPROLOL TARTRATE 50 MG TAB PO SCH ×2 (08:41→20:22)
[2021-07-29] MEDS: ENOXAPARIN SODIUM 40 MG/0.4 ML SYRINGE SQ SCH (08:41)
[2021-07-29] MEDS: FENOFIBRATE NANOCRYSTALLIZED 145 MG TAB PO SCH (08:41)
[2021-07-29] MEDS: BALSAM PERU/CASTOR OIL 60 GM TUBE TP SCH ×2 (08:41→20:25)
[2021-07-29] MEDS: ACETAMINOPHEN 325 MG TAB PO PRN ×3 (08:56→20:24)
[2021-07-29 11:25] VITALS: BP 114/65
[2021-07-29] MEDS: LACTOBACILLUS RHAMNOSUS GG 1 EACH CAP.SPRINK PO SCH ×2 (12:47→20:22)
[2021-07-29] MEDS: FOLIC ACID 5 MG/ML VIAL IV SCH (12:47)
[2021-07-29 15:30] VITALS: BP 141/77
[2021-07-29] MEDS: ATORVASTATIN 40 MG TABLET PO SCH (20:22)
[2021-07-29 20:24] VITALS: BP 118/64
[2021-07-30] VITALS (20 sets, daily range): BP systolic 111–152; BP diastolic 59–97
[2021-07-30] MEDS: ACETAMINOPHEN 325 MG TAB PO PRN ×3 (00:28→20:51)
[2021-07-30 05:00] LABS: BASOPHILS % (AUTO) 1.2 % (0.0-5.0); EOSINOPHILS % (AUTO) 13.7 % (0.0-8.0); HEMATOCRIT 28.4 % (42-54); LYMPHOCYTES % (AUTO) 33.5 % (21.0-51.0); MEAN CORPUSCULAR HEMOGLOBIN 31.3 pg (27.0-33.0); MEAN CORPUSCULAR HGB CONC 32.4 g/dL (32.0-36.0); MEAN CORPUSCULAR VOLUME 96.6 fL (79-99); MONOCYTES % (AUTO) 11.9 % (3.0-13.0); NEUTROPHILS % (AUTO) 39.1 % (40.0-77.0); PLATELET COUNT (AUTO) 168 K/uL (130-400); RED BLOOD CELL COUNT(AUTO) 2.94 MIL/uL (4.50-6.20); RED CELL DISTRIBUTION WIDTH 12.9 % (11.0-15.5); WHITE BLOOD COUNT (AUTO) 6.4 K/uL (4.8-10.8)
[2021-07-30] MEDS: METOPROLOL TARTRATE 50 MG TAB PO SCH ×2 (05:06→20:50)
[2021-07-30 05:15] LABS: INR 1.09 (0.85-1.15); PROTHROMBIN TIME 11.8 SEC (9.6-11.6)
[2021-07-30 05:16] LABS: PARTIAL THROMBOPLASTIN TIME 24.6 SEC (26.3-35.5)
[2021-07-30 05:19] LABS: ALBUMIN 2.5 g/dL (3.5-5.0); BILIRUBIN,TOTAL 0.4 mg/dL (0.2-1.0); CREATININE 1.2 mg/dL (0.5-1.5); POTASSIUM 3.9 mmol/L (3.5-5.1); TOTAL PROTEIN, SERUM 6.7 g/dL (6.0-8.3)
[2021-07-30] MEDS: INSULIN HUMULIN R 100 UNIT/ML 3ML SQ SCH ×4 (05:48→20:56)
[2021-07-30] MEDS: FENOFIBRATE NANOCRYSTALLIZED 145 MG TAB PO SCH (09:00)
[2021-07-30] MEDS: BALSAM PERU/CASTOR OIL 60 GM TUBE TP SCH ×2 (09:00→22:27)
[2021-07-30] MEDS: FOLIC ACID 5 MG/ML VIAL IV SCH (09:00)
[2021-07-30] MEDS: ENOXAPARIN SODIUM 40 MG/0.4 ML SYRINGE SQ SCH (09:00)
[2021-07-30] MEDS: LEVOFLOXACIN 750 MG TABLET PO SCH (09:00)
[2021-07-30] MEDS: LACTOBACILLUS RHAMNOSUS GG 1 EACH CAP.SPRINK PO SCH ×2 (09:00→21:00)
[2021-07-30] MEDS: FAMOTIDINE 20MG TAB PO SCH ×2 (09:00→20:50)
[2021-07-30] MEDS ORDERED: ROPIVACAINE 0.5% 5MG/ML 30ML IJ ONE (11:15)
[2021-07-30] MEDS ORDERED: IOPAMIDOL 10 ML VIAL ONE (12:06)
[2021-07-30] MEDS ORDERED: LACTATED RINGERS 1000ML 1,000 ML IV ONE (12:12)
[2021-07-30] MEDS ORDERED: MIDAZOLAM HCL 1 MG/ML 2ML VIAL ONE ×2 (15:16→15:21)
[2021-07-30] MEDS ORDERED: FENTANYL CITRATE PF 50 MCG/1 ML 2ML VIAL ONE (15:16)
[2021-07-30] MEDS ORDERED: SUCCINYLCHOLINE CHLORIDE 20 MG/ML 10 ML VIAL ONE (15:22)
[2021-07-30] MEDS ORDERED: MORPHINE 4 MG SYG ONE (17:58)
[2021-07-30] MEDS: ATORVASTATIN 40 MG TABLET PO SCH (20:50)
[2021-07-31 03:53] VITALS: BP 130/67
[2021-07-31 06:25] LABS: BASOPHILS % (AUTO) 0.9 % (0.0-5.0); EOSINOPHILS % (AUTO) 6.7 % (0.0-8.0); HEMATOCRIT 28.2 % (42-54); LYMPHOCYTES % (AUTO) 27.4 % (21.0-51.0); MEAN CORPUSCULAR HEMOGLOBIN 31.5 pg (27.0-33.0); MEAN CORPUSCULAR HGB CONC 32.3 g/dL (32.0-36.0); MEAN CORPUSCULAR VOLUME 97.6 fL (79-99); MONOCYTES % (AUTO) 9.8 % (3.0-13.0); NEUTROPHILS % (AUTO) 54.7 % (40.0-77.0); PLATELET COUNT (AUTO) 144 K/uL (130-400); RED BLOOD CELL COUNT(AUTO) 2.89 MIL/uL (4.50-6.20); RED CELL DISTRIBUTION WIDTH 12.8 % (11.0-15.5); WHITE BLOOD COUNT (AUTO) 6.5 K/uL (4.8-10.8)
[2021-07-31 06:35] LABS: POTASSIUM 4.2 mmol/L (3.5-5.1)
[2021-07-31] MEDS: INSULIN HUMULIN R 100 UNIT/ML 3ML SQ SCH ×4 (07:30→20:35)
[2021-07-31 07:54] VITALS: BP 117/58
[2021-07-31] MEDS: FENOFIBRATE NANOCRYSTALLIZED 145 MG TAB PO SCH (10:16)
[2021-07-31] MEDS: FAMOTIDINE 20MG TAB PO SCH ×2 (10:17→20:33)
[2021-07-31] MEDS: ENOXAPARIN SODIUM 40 MG/0.4 ML SYRINGE SQ SCH (10:17)
[2021-07-31] MEDS: LEVOFLOXACIN 750 MG TABLET PO SCH (10:17)
[2021-07-31] MEDS: METOPROLOL TARTRATE 50 MG TAB PO SCH ×2 (10:17→20:33)
[2021-07-31] MEDS: BALSAM PERU/CASTOR OIL 60 GM TUBE TP SCH ×2 (10:20→20:36)
[2021-07-31] MEDS: LACTOBACILLUS RHAMNOSUS GG 1 EACH CAP.SPRINK PO SCH ×2 (10:26→20:33)
[2021-07-31] MEDS: FOLIC ACID 5 MG/ML VIAL IV SCH (11:24)
[2021-07-31 11:25] VITALS: BP 114/69
[2021-07-31] MEDS: ACETAMINOPHEN 325 MG TAB PO PRN ×2 (11:26→20:34)
[2021-07-31] MEDS: GABAPENTIN 100 MG CAPSULE PO SCH ×2 (14:42→20:34)
[2021-07-31 15:15] VITALS: BP 131/77
[2021-07-31 19:40] VITALS: BP 122/68
[2021-07-31] MEDS: ATORVASTATIN 40 MG TABLET PO SCH (20:34)
[2021-07-31 23:25] VITALS: BP 124/58
[2021-08-01 03:39] VITALS: BP 146/78
[2021-08-01 06:16] LABS: EOSINOPHILS % (AUTO) 8.1 % (0.0-8.0); HEMATOCRIT 29.2 % (42-54); LYMPHOCYTES % (AUTO) 31.6 % (21.0-51.0); MEAN CORPUSCULAR HEMOGLOBIN 31.5 pg (27.0-33.0); MEAN CORPUSCULAR HGB CONC 32.5 g/dL (32.0-36.0); MEAN CORPUSCULAR VOLUME 96.7 fL (79-99); NEUTROPHILS % (AUTO) 48.9 % (40.0-77.0); PLATELET COUNT (AUTO) 165 K/uL (130-400); RED BLOOD CELL COUNT(AUTO) 3.02 MIL/uL (4.50-6.20); WHITE BLOOD COUNT (AUTO) 6.9 K/uL (4.8-10.8)
[2021-08-01 06:26] LABS: CREATININE 0.9 mg/dL (0.5-1.5); POTASSIUM 4.2 mmol/L (3.5-5.1)
[2021-08-01] MEDS: INSULIN HUMULIN R 100 UNIT/ML 3ML SQ SCH ×4 (06:33→20:49)
[2021-08-01] MEDS: LACTOBACILLUS RHAMNOSUS GG 1 EACH CAP.SPRINK PO SCH ×2 (07:50→20:50)
[2021-08-01] MEDS: GABAPENTIN 100 MG CAPSULE PO SCH ×3 (07:50→20:09)
[2021-08-01] MEDS: FENOFIBRATE NANOCRYSTALLIZED 145 MG TAB PO SCH (07:50)
[2021-08-01] MEDS: FAMOTIDINE 20MG TAB PO SCH ×2 (07:50→20:09)
[2021-08-01] MEDS: METOPROLOL TARTRATE 50 MG TAB PO SCH ×2 (07:50→20:09)
[2021-08-01] MEDS: ENOXAPARIN SODIUM 40 MG/0.4 ML SYRINGE SQ SCH (07:51)
[2021-08-01] MEDS: LEVOFLOXACIN 750 MG TABLET PO SCH (07:51)
[2021-08-01] MEDS: BALSAM PERU/CASTOR OIL 60 GM TUBE TP SCH ×2 (07:52→20:17)
[2021-08-01] MEDS: ACETAMINOPHEN 325 MG TAB PO PRN ×3 (07:55→20:10)
[2021-08-01 08:00] VITALS: BP 142/78
[2021-08-01] MEDS: FOLIC ACID 5 MG/ML VIAL IV SCH (09:00)
[2021-08-01 12:00] VITALS: BP 113/83
[2021-08-01 16:00] VITALS: BP 116/80
[2021-08-01] MEDS: ATORVASTATIN 40 MG TABLET PO SCH (20:09)
[2021-08-01 20:16] VITALS: BP 130/48
[2021-08-02 00:24] VITALS: BP 132/74
[2021-08-02 04:24] VITALS: BP 133/66
[2021-08-02] MEDS: INSULIN HUMULIN R 100 UNIT/ML 3ML SQ SCH ×4 (06:00→20:32)
[2021-08-02 08:00] VITALS: BP 143/70
[2021-08-02] MEDS: FENOFIBRATE NANOCRYSTALLIZED 145 MG TAB PO SCH (08:36)
[2021-08-02] MEDS: LACTOBACILLUS RHAMNOSUS GG 1 EACH CAP.SPRINK PO SCH ×2 (08:36→20:38)
[2021-08-02] MEDS: GABAPENTIN 100 MG CAPSULE PO SCH ×3 (08:37→20:38)
[2021-08-02] MEDS: FAMOTIDINE 20MG TAB PO SCH ×2 (08:37→20:38)
[2021-08-02] MEDS: METOPROLOL TARTRATE 25 MG TAB PO SCH ×2 (08:37→20:38)
[2021-08-02] MEDS: FOLIC ACID 5 MG/ML VIAL IV SCH (08:38)
[2021-08-02 12:00] VITALS: BP 112/47
[2021-08-02] MEDS ORDERED: 0.9%NACL 10ML VIAL ONE (14:08)
[2021-08-02] MEDS: ACETAMINOPHEN 325 MG TAB PO PRN ×2 (14:20→20:39)
[2021-08-02 16:00] VITALS: BP 133/70
[2021-08-02 20:08] VITALS: BP 140/82
[2021-08-02] MEDS: ATORVASTATIN 40 MG TABLET PO SCH (20:38)
[2021-08-02] MEDS: BALSAM PERU/CASTOR OIL 60 GM TUBE TP SCH (20:56)
[2021-08-03] VITALS (7 sets, daily range): BP systolic 125–149; BP diastolic 46–90
[2021-08-03] MEDS: ACETAMINOPHEN 325 MG TAB PO PRN ×4 (03:05→20:14)
[2021-08-03] MEDS: INSULIN HUMULIN R 100 UNIT/ML 3ML SQ SCH ×4 (06:34→20:15)
[2021-08-03 06:35] LABS: BASOPHILS % (AUTO) 0.7 % (0.0-5.0); EOSINOPHILS % (AUTO) 10.6 % (0.0-8.0); HEMATOCRIT 28.6 % (42-54); LYMPHOCYTES % (AUTO) 35.9 % (21.0-51.0); MEAN CORPUSCULAR HEMOGLOBIN 31.5 pg (27.0-33.0); MEAN CORPUSCULAR HGB CONC 32.2 g/dL (32.0-36.0); MEAN CORPUSCULAR VOLUME 97.9 fL (79-99); MONOCYTES % (AUTO) 9.4 % (3.0-13.0); NEUTROPHILS % (AUTO) 42.9 % (40.0-77.0); PLATELET COUNT (AUTO) 131 K/uL (130-400); RED BLOOD CELL COUNT(AUTO) 2.92 MIL/uL (4.50-6.20); RED CELL DISTRIBUTION WIDTH 12.8 % (11.0-15.5); WHITE BLOOD COUNT (AUTO) 6.1 K/uL (4.8-10.8)
[2021-08-03 06:49] LABS: CREATININE 0.8 mg/dL (0.5-1.5); POTASSIUM 3.9 mmol/L (3.5-5.1)
[2021-08-03] MEDS: ENOXAPARIN SODIUM 40 MG/0.4 ML SYRINGE SQ SCH ×2 (09:00→09:08)
[2021-08-03] MEDS: FAMOTIDINE 20MG TAB PO SCH ×2 (09:01→20:07)
[2021-08-03] MEDS: LACTOBACILLUS RHAMNOSUS GG 1 EACH CAP.SPRINK PO SCH ×2 (09:01→20:07)
[2021-08-03] MEDS: FENOFIBRATE NANOCRYSTALLIZED 145 MG TAB PO SCH (09:01)
[2021-08-03] MEDS: METOPROLOL TARTRATE 25 MG TAB PO SCH ×2 (09:02→20:07)
[2021-08-03] MEDS: GABAPENTIN 100 MG CAPSULE PO SCH ×2 (09:02→20:08)
[2021-08-03] MEDS: BALSAM PERU/CASTOR OIL 60 GM TUBE TP SCH ×2 (13:01→20:19)
[2021-08-03] MEDS: ATORVASTATIN 40 MG TABLET PO SCH (20:08)
[2021-08-04 03:40] VITALS: BP 138/75
[2021-08-04] MEDS: INSULIN HUMULIN R 100 UNIT/ML 3ML SQ SCH ×4 (07:30→20:11)
[2021-08-04] MEDS: LACTOBACILLUS RHAMNOSUS GG 1 EACH CAP.SPRINK PO SCH ×2 (08:25→20:07)
[2021-08-04] MEDS: METOPROLOL TARTRATE 25 MG TAB PO SCH ×2 (08:25→20:07)
[2021-08-04] MEDS: FENOFIBRATE NANOCRYSTALLIZED 145 MG TAB PO SCH (08:25)
[2021-08-04] MEDS: FAMOTIDINE 20MG TAB PO SCH ×2 (08:25→20:07)
[2021-08-04] MEDS: GABAPENTIN 100 MG CAPSULE PO SCH ×2 (08:26→20:08)
[2021-08-04 08:27] VITALS: BP 155/88
[2021-08-04] MEDS: ENOXAPARIN SODIUM 40 MG/0.4 ML SYRINGE SQ SCH (08:27)
[2021-08-04] MEDS: ACETAMINOPHEN 325 MG TAB PO PRN ×2 (08:36→20:08)
[2021-08-04] MEDS: BALSAM PERU/CASTOR OIL 60 GM TUBE TP SCH ×2 (08:36→21:00)
[2021-08-04 11:55] VITALS: BP 133/84
[2021-08-04 16:25] VITALS: BP 130/68
[2021-08-04] MEDS: ATORVASTATIN 40 MG TABLET PO SCH (20:07)
[2021-08-04 20:09] VITALS: BP 137/72
[2021-08-04 23:32] VITALS: BP 153/88
[2021-08-05 03:25] VITALS: BP 126/82
[2021-08-05] MEDS: INSULIN HUMULIN R 100 UNIT/ML 3ML SQ SCH ×4 (06:49→20:23)
[2021-08-05] MEDS: ACETAMINOPHEN 325 MG TAB PO PRN ×3 (06:57→20:14)
[2021-08-05 08:15] VITALS: BP 167/91
[2021-08-05] MEDS: METOPROLOL TARTRATE 25 MG TAB PO SCH ×2 (09:13→20:15)
[2021-08-05] MEDS: GABAPENTIN 100 MG CAPSULE PO SCH ×2 (09:13→20:13)
[2021-08-05] MEDS: FENOFIBRATE NANOCRYSTALLIZED 145 MG TAB PO SCH (09:13)
[2021-08-05] MEDS: FAMOTIDINE 20MG TAB PO SCH ×2 (09:13→20:13)
[2021-08-05] MEDS: LACTOBACILLUS RHAMNOSUS GG 1 EACH CAP.SPRINK PO SCH ×2 (09:13→20:12)
[2021-08-05] MEDS: ENOXAPARIN SODIUM 40 MG/0.4 ML SYRINGE SQ SCH (09:15)
[2021-08-05] MEDS: BALSAM PERU/CASTOR OIL 60 GM TUBE TP SCH ×2 (09:16→20:16)
[2021-08-05 10:30] LABS: BASOPHILS % (AUTO) 0.5 % (0.0-5.0); EOSINOPHILS % (AUTO) 10.6 % (0.0-8.0); HEMATOCRIT 29.5 % (42-54); LYMPHOCYTES % (AUTO) 28.4 % (21.0-51.0); MEAN CORPUSCULAR HEMOGLOBIN 31.3 pg (27.0-33.0); MEAN CORPUSCULAR HGB CONC 31.2 g/dL (32.0-36.0); MEAN CORPUSCULAR VOLUME 100.3 fL (79-99); MONOCYTES % (AUTO) 7.5 % (3.0-13.0); NEUTROPHILS % (AUTO) 52.5 % (40.0-77.0); PLATELET COUNT (AUTO) 140 K/uL (130-400); RED BLOOD CELL COUNT(AUTO) 2.94 MIL/uL (4.50-6.20); RED CELL DISTRIBUTION WIDTH 12.8 % (11.0-15.5); WHITE BLOOD COUNT (AUTO) 6.5 K/uL (4.8-10.8)
[2021-08-05 10:35] LABS: RETICULOCYTE % (AUTO) 4.03 % (0.42-2.23)
[2021-08-05 10:40] LABS: HEMOGLOBIN A1C 8.1 % (4.0-6.0)
[2021-08-05 10:45] LABS: % IRON SATURATION 33.4 % (30-44)
[2021-08-05 10:47] LABS: ALBUMIN 2.8 g/dL (3.5-5.0); CREATININE 0.8 mg/dL (0.5-1.5); PHOSPHORUS 4.8 mg/dL (2.5-4.9); POTASSIUM 3.6 mmol/L (3.5-5.1)
[2021-08-05 10:48] LABS: BILIRUBIN,TOTAL 0.4 mg/dL (0.2-1.0); MAGNESIUM 1.3 mg/dL (1.80-2.40); TOTAL PROTEIN, SERUM 6.3 g/dL (6.0-8.3)
[2021-08-05 12:05] VITALS: BP 129/70
[2021-08-05 17:29] VITALS: BP 120/69
[2021-08-05] MEDS: ATORVASTATIN 40 MG TABLET PO SCH (20:13)
[2021-08-05 20:17] VITALS: BP 129/66
[2021-08-05 23:44] VITALS: BP 141/82
[2021-08-06 04:07] VITALS: BP 125/79
[2021-08-06] MEDS: INSULIN HUMULIN R 100 UNIT/ML 3ML SQ SCH ×4 (07:30→20:30)
[2021-08-06 08:00] VITALS: BP 153/97
[2021-08-06] MEDS: LACTOBACILLUS RHAMNOSUS GG 1 EACH CAP.SPRINK PO SCH ×2 (08:23→20:26)
[2021-08-06] MEDS: METOPROLOL TARTRATE 25 MG TAB PO SCH ×2 (08:23→20:27)
[2021-08-06] MEDS: GABAPENTIN 100 MG CAPSULE PO SCH ×2 (08:24→20:27)
[2021-08-06] MEDS: FENOFIBRATE NANOCRYSTALLIZED 145 MG TAB PO SCH (08:24)
[2021-08-06] MEDS: FAMOTIDINE 20MG TAB PO SCH ×2 (08:24→20:27)
[2021-08-06] MEDS: ENOXAPARIN SODIUM 40 MG/0.4 ML SYRINGE SQ SCH (08:25)
[2021-08-06] MEDS: ACETAMINOPHEN 325 MG TAB PO PRN ×3 (08:25→20:29)
[2021-08-06] MEDS: BALSAM PERU/CASTOR OIL 60 GM TUBE TP SCH ×2 (08:27→20:30)
[2021-08-06 12:00] VITALS: BP 133/76
[2021-08-06 16:00] VITALS: BP 137/87
[2021-08-06] MEDS: ATORVASTATIN 40 MG TABLET PO SCH (20:27)
[2021-08-06 20:37] VITALS: BP 144/86
[2021-08-07 00:47] VITALS: BP 130/80
[2021-08-07 04:04] VITALS: BP 134/95
[2021-08-07] MEDS: INSULIN HUMULIN R 100 UNIT/ML 3ML SQ SCH ×4 (06:33→21:00)
[2021-08-07 08:00] VITALS: BP 147/88
[2021-08-07] MEDS: LACTOBACILLUS RHAMNOSUS GG 1 EACH CAP.SPRINK PO SCH ×2 (09:36→21:07)
[2021-08-07] MEDS: METOPROLOL TARTRATE 25 MG TAB PO SCH ×2 (09:36→21:08)
[2021-08-07] MEDS: FENOFIBRATE NANOCRYSTALLIZED 145 MG TAB PO SCH (09:37)
[2021-08-07] MEDS: GABAPENTIN 100 MG CAPSULE PO SCH ×2 (09:37→21:08)
[2021-08-07] MEDS: FAMOTIDINE 20MG TAB PO SCH ×2 (09:37→21:08)
[2021-08-07] MEDS: BALSAM PERU/CASTOR OIL 60 GM TUBE TP SCH ×2 (09:39→22:16)
[2021-08-07] MEDS: ENOXAPARIN SODIUM 40 MG/0.4 ML SYRINGE SQ SCH (09:39)
[2021-08-07] MEDS: ACETAMINOPHEN 325 MG TAB PO PRN ×3 (09:39→21:08)
[2021-08-07 12:00] VITALS: BP 134/87
[2021-08-07 16:00] VITALS: BP 137/86
[2021-08-07 20:24] VITALS: BP 139/83
[2021-08-07] MEDS: ATORVASTATIN 40 MG TABLET PO SCH (21:08)
[2021-08-08] VITALS (7 sets, daily range): BP systolic 117–146; BP diastolic 57–90
[2021-08-08] MEDS: INSULIN HUMULIN R 100 UNIT/ML 3ML SQ SCH ×4 (06:12→21:00)
[2021-08-08] MEDS: FENOFIBRATE NANOCRYSTALLIZED 145 MG TAB PO SCH (09:00)
[2021-08-08] MEDS: FAMOTIDINE 20MG TAB PO SCH ×2 (09:00→21:19)
[2021-08-08] MEDS: LACTOBACILLUS RHAMNOSUS GG 1 EACH CAP.SPRINK PO SCH ×2 (09:00→21:19)
[2021-08-08] MEDS: ENOXAPARIN SODIUM 40 MG/0.4 ML SYRINGE SQ SCH (09:01)
[2021-08-08] MEDS: GABAPENTIN 100 MG CAPSULE PO SCH ×2 (09:01→21:20)
[2021-08-08] MEDS: BALSAM PERU/CASTOR OIL 60 GM TUBE TP SCH (09:02)
[2021-08-08] MEDS: ACETAMINOPHEN 325 MG TAB PO PRN ×2 (09:03→21:22)
[2021-08-08] MEDS: METOPROLOL TARTRATE 25 MG TAB PO SCH ×2 (09:03→21:19)
[2021-08-08] MEDS: ATORVASTATIN 40 MG TABLET PO SCH (21:19)
[2021-08-09 03:51] VITALS: BP 128/74
[2021-08-09] MEDS: INSULIN HUMULIN R 100 UNIT/ML 3ML SQ SCH ×4 (05:57→21:00)
[2021-08-09 07:30] VITALS: BP 119/72
[2021-08-09] MEDS: METFORMIN HCL 500 MG TAB.SR.24H PO SCH ×2 (08:26→16:27)
[2021-08-09] MEDS: GABAPENTIN 100 MG CAPSULE PO SCH ×2 (08:26→20:52)
[2021-08-09] MEDS: METOPROLOL TARTRATE 25 MG TAB PO SCH ×2 (08:26→20:52)
[2021-08-09] MEDS: FENOFIBRATE NANOCRYSTALLIZED 145 MG TAB PO SCH (08:26)
[2021-08-09] MEDS: FAMOTIDINE 20MG TAB PO SCH ×2 (08:26→20:52)
[2021-08-09] MEDS: LACTOBACILLUS RHAMNOSUS GG 1 EACH CAP.SPRINK PO SCH ×2 (08:26→20:51)
[2021-08-09] MEDS: ENOXAPARIN SODIUM 40 MG/0.4 ML SYRINGE SQ SCH (08:27)
[2021-08-09] MEDS: ACETAMINOPHEN 325 MG TAB PO PRN ×3 (08:28→22:13)
[2021-08-09 11:59] VITALS: BP 140/68
[2021-08-09 16:30] VITALS: BP 119/71
[2021-08-09 19:46] VITALS: BP 129/79
[2021-08-09] MEDS: ATORVASTATIN 40 MG TABLET PO SCH (20:52)
[2021-08-09 23:34] VITALS: BP 127/67
[2021-08-10] VITALS (7 sets, daily range): BP systolic 109–141; BP diastolic 52–87
[2021-08-10 04:52] LABS: HEMATOCRIT 32.2 % (42-54); MEAN CORPUSCULAR HEMOGLOBIN 31.1 pg (27.0-33.0); MEAN CORPUSCULAR HGB CONC 31.7 g/dL (32.0-36.0); MEAN CORPUSCULAR VOLUME 98.2 fL (79-99); RED BLOOD CELL COUNT(AUTO) 3.28 MIL/uL (4.50-6.20); RED CELL DISTRIBUTION WIDTH 12.1 % (11.0-15.5); WHITE BLOOD COUNT (AUTO) 6.6 K/uL (4.8-10.8)
[2021-08-10 05:11] LABS: CREATININE 0.7 mg/dL (0.5-1.5); MAGNESIUM 1.3 mg/dL (1.80-2.40); PHOSPHORUS 5.5 mg/dL (2.5-4.9)
[2021-08-10] MEDS: INSULIN HUMULIN R 100 UNIT/ML 3ML SQ SCH ×4 (05:55→21:00)
[2021-08-10] MEDS: FAMOTIDINE 20MG TAB PO SCH ×2 (08:24→20:38)
[2021-08-10] MEDS: GABAPENTIN 100 MG CAPSULE PO SCH ×2 (08:24→20:39)
[2021-08-10] MEDS: METFORMIN HCL 500 MG TAB.SR.24H PO SCH ×2 (08:24→18:18)
[2021-08-10] MEDS: LACTOBACILLUS RHAMNOSUS GG 1 EACH CAP.SPRINK PO SCH ×2 (08:24→20:38)
[2021-08-10] MEDS: FENOFIBRATE NANOCRYSTALLIZED 145 MG TAB PO SCH (08:24)
[2021-08-10] MEDS: ENOXAPARIN SODIUM 40 MG/0.4 ML SYRINGE SQ SCH (08:25)
[2021-08-10] MEDS: METOPROLOL TARTRATE 25 MG TAB PO SCH ×2 (08:25→20:39)
[2021-08-10] MEDS: ACETAMINOPHEN 325 MG TAB PO PRN ×3 (13:27→23:57)
[2021-08-10] MEDS ORDERED: MAGNESIUM 2GM PREMIX 50ML 50 ML IV PRN (19:00)
[2021-08-10] MEDS: MAGNESIUM 2GM PREMIX 50ML 50 ML IV SCH (19:16)
[2021-08-10] MEDS: ATORVASTATIN 40 MG TABLET PO SCH (20:38)
[2021-08-11 03:48] VITALS: BP 130/68
[2021-08-11] MEDS: INSULIN HUMULIN R 100 UNIT/ML 3ML SQ SCH ×4 (05:42→21:00)
[2021-08-11] MEDS: MAGNESIUM 2GM PREMIX 50ML 50 ML IV SCH (06:35)
[2021-08-11] MEDS: METFORMIN HCL 500 MG TAB.SR.24H PO SCH ×2 (08:38→16:44)
[2021-08-11] MEDS: FAMOTIDINE 20MG TAB PO SCH ×2 (08:38→20:30)
[2021-08-11] MEDS: METOPROLOL TARTRATE 25 MG TAB PO SCH ×2 (08:38→20:33)
[2021-08-11] MEDS: FENOFIBRATE NANOCRYSTALLIZED 145 MG TAB PO SCH (08:38)
[2021-08-11] MEDS: LACTOBACILLUS RHAMNOSUS GG 1 EACH CAP.SPRINK PO SCH ×2 (08:38→20:30)
[2021-08-11] MEDS: GABAPENTIN 100 MG CAPSULE PO SCH ×2 (08:39→20:30)
[2021-08-11] MEDS: ENOXAPARIN SODIUM 40 MG/0.4 ML SYRINGE SQ SCH (08:40)
[2021-08-11] MEDS: ACETAMINOPHEN 325 MG TAB PO PRN ×3 (08:41→20:32)
[2021-08-11 08:46] VITALS: BP 130/79
[2021-08-11 11:44] VITALS: BP 124/64
[2021-08-11 15:53] VITALS: BP 119/71
[2021-08-11 20:15] VITALS: BP 146/84
[2021-08-11] MEDS: ATORVASTATIN 40 MG TABLET PO SCH (20:30)
[2021-08-11 23:48] VITALS: BP 144/85
[2021-08-12 03:45] VITALS: BP 130/63
[2021-08-12 05:37] LABS: MEAN CORPUSCULAR HEMOGLOBIN 31.3 pg (27.0-33.0); MEAN CORPUSCULAR HGB CONC 31.3 g/dL (32.0-36.0); MEAN CORPUSCULAR VOLUME 100.3 fL (79-99); PLATELET COUNT (AUTO) 217 K/uL (130-400); RED BLOOD CELL COUNT(AUTO) 3.19 MIL/uL (4.50-6.20); WHITE BLOOD COUNT (AUTO) 6.4 K/uL (4.8-10.8)
[2021-08-12 05:49] LABS: CREATININE 0.7 mg/dL (0.5-1.5); POTASSIUM 4.3 mmol/L (3.5-5.1)
[2021-08-12 06:42] LABS: BAND NEUTROPHILS % (MANUAL) 1 % (0-2); BASOPHILS % (MANUAL) 3 % (0-2); EOSINOPHILS % (MANUAL) 11 % (1-6); LYMPHOCYTES % (MANUAL) 35 % (22-44); MAN.DIFF COMMENT-IMPRESSION MANUAL DIFFERENTIAL; MONOCYTES % (MANUAL) 5 % (2-9); PLATELET MORPHOLOGY COMMENT ADEQUATE; REACTIVE LYMPHOCYTES 5 % (0-0); SEGMENTED NEUTROPHILS % 40 % (40-70)
[2021-08-12] MEDS: INSULIN HUMULIN R 100 UNIT/ML 3ML SQ SCH ×4 (06:45→21:00)
[2021-08-12] MEDS: METFORMIN HCL 500 MG TAB.SR.24H PO SCH ×2 (07:47→16:21)
[2021-08-12] MEDS: LACTOBACILLUS RHAMNOSUS GG 1 EACH CAP.SPRINK PO SCH ×2 (07:47→21:24)
[2021-08-12] MEDS: GABAPENTIN 100 MG CAPSULE PO SCH ×2 (07:48→21:25)
[2021-08-12] MEDS: FAMOTIDINE 20MG TAB PO SCH ×2 (07:48→21:24)
[2021-08-12] MEDS: FENOFIBRATE NANOCRYSTALLIZED 145 MG TAB PO SCH (07:48)
[2021-08-12] MEDS: METOPROLOL TARTRATE 25 MG TAB PO SCH ×2 (07:48→21:24)
[2021-08-12] MEDS: ENOXAPARIN SODIUM 40 MG/0.4 ML SYRINGE SQ SCH (07:49)
[2021-08-12] MEDS: ACETAMINOPHEN 325 MG TAB PO PRN ×3 (07:55→21:35)
[2021-08-12 08:57] VITALS: BP 147/95
[2021-08-12 11:42] VITALS: BP 128/72
[2021-08-12 16:13] LABS: APPEARANCE,URINE Cloudy (CLEAR); BILIRUBIN,URINE Negative (NEGATIVE); COLOR,URINE Yellow (YELLOW); GLUCOSE, URINE (UA) Negative (NEGATIVE); KETONES,URINE Negative (NEGATIVE); LEUKOCYTE ESTERASE ,URINE Small (NEGATIVE); NITRATE,URINE Negative (NEGATIVE); OCCULT BLOOD,URINE Negative (NEGATIVE); PH,URINE 5.5 (5.0-8.0); PROTEIN,URINE Trace mg/dL (NEGATIVE)
[2021-08-12 16:16] LABS: CREATININE,URINE RANDOM 117 mg/dL (30-135); SODIUM,URINE RANDOM 31 mmol/l (40-220)
[2021-08-12 17:11] VITALS: BP 138/79
[2021-08-12 17:24] LABS: BACTERIA,URINE Moderate /HPF (None Seen); RBC,URINE 0-1 /HPF (0-1); SQUAMOUS EPITHELIAL CELL,UR Few /HPF (0-2); YEAST,URINE BUDDING Rare /HPF (None Seen)
[2021-08-12 17:25] LABS: HYALINE CASTS, URINE 0-1 /LPF (0-1 /LPF)
[2021-08-12 20:27] VITALS: BP 125/63
[2021-08-12] MEDS: ATORVASTATIN 40 MG TABLET PO SCH (21:24)
[2021-08-13 00:18] VITALS: BP 104/54
[2021-08-13 03:54] VITALS: BP 144/82
[2021-08-13 05:01] LABS: HEMATOCRIT 32.3 % (42-54); MEAN CORPUSCULAR HEMOGLOBIN 30.7 pg (27.0-33.0); MEAN CORPUSCULAR HGB CONC 31.6 g/dL (32.0-36.0); MEAN CORPUSCULAR VOLUME 97.3 fL (79-99); PLATELET COUNT (AUTO) 217 K/uL (130-400); RED BLOOD CELL COUNT(AUTO) 3.32 MIL/uL (4.50-6.20)
[2021-08-13 05:21] LABS: CREATININE 0.6 mg/dL (0.5-1.5); MAGNESIUM 1.5 mg/dL (1.80-2.40); POTASSIUM 3.7 mmol/L (3.5-5.1)
[2021-08-13] MEDS: INSULIN HUMULIN R 100 UNIT/ML 3ML SQ SCH (05:41)
[2021-08-13 06:17] LABS: BAND NEUTROPHILS % (MANUAL) 2 % (0-2); BASOPHILS % (MANUAL) 2 % (0-2); EOSINOPHILS % (MANUAL) 7 % (1-6); LYMPHOCYTES % (MANUAL) 44 % (22-44); MAN.DIFF COMMENT-IMPRESSION MANUAL DIFFERENTIAL; MONOCYTES % (MANUAL) 6 % (2-9); REACTIVE LYMPHOCYTES 3 % (0-0); SEGMENTED NEUTROPHILS % 36 % (40-70)
[2021-08-13] MEDS: MAGNESIUM 2GM PREMIX 50ML 50 ML IV SCH ×2 (06:37→12:17)
[2021-08-13 08:07] VITALS: BP 132/73
[2021-08-13] MEDS: LACTOBACILLUS RHAMNOSUS GG 1 EACH CAP.SPRINK PO SCH (10:09)
[2021-08-13] MEDS: GABAPENTIN 100 MG CAPSULE PO SCH (10:09)
[2021-08-13] MEDS: METOPROLOL TARTRATE 25 MG TAB PO SCH (10:10)
[2021-08-13] MEDS: FENOFIBRATE NANOCRYSTALLIZED 145 MG TAB PO SCH (10:10)
[2021-08-13] MEDS: METFORMIN HCL 500 MG TAB.SR.24H PO SCH (10:10)
[2021-08-13] MEDS: FAMOTIDINE 20MG TAB PO SCH (10:10)
[2021-08-13] MEDS: ENOXAPARIN SODIUM 40 MG/0.4 ML SYRINGE SQ SCH (10:11)
[2021-08-13] MEDS: ACETAMINOPHEN 325 MG TAB PO PRN ×2 (10:12→14:21)
[2021-08-13 11:09] VITALS: BP 134/84
[2021-08-13] MEDS ORDERED: METF-446 PO (13:28)
[2021-08-13] MEDS ORDERED: GABA-529 PO (13:28)
[2021-08-13] MEDS ORDERED: METO50 PO (13:28)
[2021-08-13] MEDS ORDERED: GLIM2TAB30 PO (13:28)
[2021-08-13] MEDS ORDERED: CEFU500T67 PO (14:43)
[2021-08-13] MEDS ORDERED: CEFUROXIME AXETIL 250 MG TABLET PO SCH (15:00)
== END 2021-08-13 17:20 | disposition home health service (06) | DRG 853 ==
LOC: EDH 15:47 → EDHIP 15:48 → 2DH 07-04 08:50 → 2CH 07-05 22:37 → 4BH 07-19 20:50 → 4DH 07-21 18:09 → 3AH 07-26 18:45
PROVIDERS: ADMIT Internal Medicine; ATTEND Internal Medicine
PROC: 5A1955Z Respiratory Ventilation, Greater than 96 Consecutive Hours (ICD-10-PCS; 2021-07-04)
PROC: 0BH17EZ Insertion of Endotracheal Airway into Trachea, Via Natural or Artificial Opening (ICD-10-PCS; 2021-07-04)
PROC: 0JBB0ZZ Excision of Perineum Subcutaneous Tissue and Fascia, Open Approach (ICD-10-PCS; principal; 2021-07-04 18:35)
PROC: 02HV33Z Insertion of Infusion Device into Superior Vena Cava, Percutaneous Approach (ICD-10-PCS; 2021-07-05)
PROC: 06HM33Z Insertion of Infusion Device into Right Femoral Vein, Percutaneous Approach (ICD-10-PCS; 2021-07-06)
PROC: B54BZZA Ultrasonography of Right Lower Extremity Veins, Guidance (ICD-10-PCS; 2021-07-06)
PROC: 5A1D70Z Performance of Urinary Filtration, Intermittent, Less than 6 Hours Per Day (ICD-10-PCS; 2021-07-06)
PROC: 5A1D70Z Performance of Urinary Filtration, Intermittent, Less than 6 Hours Per Day (ICD-10-PCS; 2021-07-09)
PROC: 03HY32Z Insertion of Monitoring Device into Upper Artery, Percutaneous Approach (ICD-10-PCS; 2021-07-11)
PROC: 05HM33Z Insertion of Infusion Device into Right Internal Jugular Vein, Percutaneous Approach (ICD-10-PCS; 2021-07-11)
PROC: B543ZZA Ultrasonography of Right Jugular Veins, Guidance (ICD-10-PCS; 2021-07-11)
PROC: 0B9D8ZX Drainage of Right Middle Lung Lobe, Via Natural or Artificial Opening Endoscopic, Diagnostic (ICD-10-PCS; 2021-07-11)
PROC: 5A1D70Z Performance of Urinary Filtration, Intermittent, Less than 6 Hours Per Day (ICD-10-PCS; 2021-07-11)
PROC: 5A1D70Z Performance of Urinary Filtration, Intermittent, Less than 6 Hours Per Day (ICD-10-PCS; 2021-07-12)
PROC: 5A1D70Z Performance of Urinary Filtration, Intermittent, Less than 6 Hours Per Day (ICD-10-PCS; 2021-07-13)
PROC: 5A1D70Z Performance of Urinary Filtration, Intermittent, Less than 6 Hours Per Day (ICD-10-PCS; 2021-07-14)
PROC: 5A1D70Z Performance of Urinary Filtration, Intermittent, Less than 6 Hours Per Day (ICD-10-PCS; 2021-07-16)
PROC: 5A09357 Assistance with Respiratory Ventilation, Less than 24 Consecutive Hours, Continuous Positive Airway Pressure (ICD-10-PCS; 2021-07-16)
PROC: 5A1945Z Respiratory Ventilation, 24-96 Consecutive Hours (ICD-10-PCS; 2021-07-16)
PROC: 5A1D70Z Performance of Urinary Filtration, Intermittent, Less than 6 Hours Per Day (ICD-10-PCS; 2021-07-17)
PROC: 5A1D70Z Performance of Urinary Filtration, Intermittent, Less than 6 Hours Per Day (ICD-10-PCS; 2021-07-18)
PROC: 5A1935Z Respiratory Ventilation, Less than 24 Consecutive Hours (ICD-10-PCS; 2021-07-19)
PROC: 5A1D70Z Performance of Urinary Filtration, Intermittent, Less than 6 Hours Per Day (ICD-10-PCS; 2021-08-07)
PROC: 3E0R33Z Introduction of Anti-inflammatory into Spinal Canal, Percutaneous Approach (ICD-10-PCS; 2021-08-09)
DX: A41.9 Sepsis, unspecified organism (principal); M72.6 Necrotizing fasciitis; R65.21 Severe sepsis with septic shock; K65.1 Peritoneal abscess; N17.0 Acute kidney failure with tubular necrosis; E43 Unspecified severe protein-calorie malnutrition; A48.0 Gas gangrene; J18.9 Pneumonia, unspecified organism; J80 Acute respiratory distress syndrome; N18.6 End stage renal disease; L02.215 Cutaneous abscess of perineum; E87.1 Hypo-osmolality and hyponatremia; Z68.43 Body mass index [BMI] 50.0-59.9, adult; E72.20 Disorder of urea cycle metabolism, unspecified; E11.52 Type 2 diabetes mellitus with diabetic peripheral angiopathy with gangrene; I13.11 Hypertensive heart and chronic kidney disease without heart failure, with stage 5 chronic kidney disease, or end stage renal disease; J81.1 Chronic pulmonary edema; K52.1 Toxic gastroenteritis and colitis; K61.1 Rectal abscess; M51.06 Intervertebral disc disorders with myelopathy, lumbar region; M62.82 Rhabdomyolysis; Z99.11 Dependence on respirator [ventilator] status; E66.2 Morbid (severe) obesity with alveolar hypoventilation; I82.601 Acute embolism and thrombosis of unspecified veins of right upper extremity; N49.3 Fournier gangrene; N13.9 Obstructive and reflux uropathy, unspecified; E87.5 Hyperkalemia; L89.152 Pressure ulcer of sacral region, stage 2; E11.649 Type 2 diabetes mellitus with hypoglycemia without coma; E11.22 Type 2 diabetes mellitus with diabetic chronic kidney disease; D64.9 Anemia, unspecified; E78.2 Mixed hyperlipidemia; E87.70 Fluid overload, unspecified; F32.A Depression, unspecified; M21.371 Foot drop, right foot; M21.372 Foot drop, left foot; M51.27 Other intervertebral disc displacement, lumbosacral region; N49.2 Inflammatory disorders of scrotum; N50.89 Other specified disorders of the male genital organs; T36.95XA Adverse effect of unspecified systemic antibiotic, initial encounter; Y95 Nosocomial condition; Z53.20 Procedure and treatment not carried out because of patient's decision for unspecified reasons; B96.1 Klebsiella pneumoniae [K. pneumoniae] as the cause of diseases classified elsewhere; Z79.2 Long term (current) use of antibiotics; Z79.4 Long term (current) use of insulin; Z79.899 Other long term (current) drug therapy; Z99.2 Dependence on renal dialysis; Y92.89 Other specified places as the place of occurrence of the external cause
CPT/HCPCS: 36415; 36600; 71045; 72110; 72157; 72158; 74176; 76705; 76770; 76870; 80048; 80053; 80061; 80076; 80202; 80305; 81001; 82010; 82040; 82140; 82435; 82550; 82565; 82570; 82607; 82728; 82746; 82803; 82947; 82948; 83036; 83540; 83550; 83605; 83735; 83874; 83930; 83935; 84100; 84132; 84145; 84295; 84300; 84443; 84484; 84520; 84540; 85014; 85018; 85025; 85027; 85045; 85610; 85651; 85730; 86140; 86701; 86704; 86706; 86850; 86900; 86901; 87040; 87070; 87071; 87076; 87077; 87088; 87101; 87116; 87186; 87205; 87206; 87210; 87281; 87340; 87390; 87486; 87556; 87635; 87797; 89051; 90935; 93005; 93306; 93970; 94002; 94003; 94640; 97039; A4606; A6250; C1751; C1752; C1894; C9113; C9803; G0378; J0330; J0360; J0610; J1030; J1040; J1100; J1170; J1450; J1580; J1644; J1650; J1815; J1940; J2001; J2185; J2250; J2270; J2370; J2405; J2543; J2704; J2710; J2795; J2997; J3010; J3230; J3370; J3475; J3490; J7030; J7040; J7050; J7120; Q0161

== ENCOUNTER → 2021-08-15 | Outpatient (CLI) | payer OTHER ==
[~2021-08-15] MED LIST: CEFU500T67 PO; CHOL2400 MC; GABA-529 PO; GLIM2TAB30 PO; MAGN400T7 PO; METF-446 PO; METO50 PO
== END | disposition home or self-care (01) ==
LOC: WHH 10:00
PROVIDERS: ATTEND Family Medicine
DX: T81.89XA Other complications of procedures, not elsewhere classified, initial encounter (principal); E11.622 Type 2 diabetes mellitus with other skin ulcer; L89.152 Pressure ulcer of sacral region, stage 2; L98.491 Non-pressure chronic ulcer of skin of other sites limited to breakdown of skin; E11.52 Type 2 diabetes mellitus with diabetic peripheral angiopathy with gangrene; A48.0 Gas gangrene; E11.22 Type 2 diabetes mellitus with diabetic chronic kidney disease; I12.0 Hypertensive chronic kidney disease with stage 5 chronic kidney disease or end stage renal disease; N18.6 End stage renal disease; M21.372 Foot drop, left foot; M21.371 Foot drop, right foot; E78.2 Mixed hyperlipidemia; F32.9 Major depressive disorder, single episode, unspecified; E66.2 Morbid (severe) obesity with alveolar hypoventilation; Z68.43 Body mass index [BMI] 50.0-59.9, adult; Z79.899 Other long term (current) drug therapy; Z79.4 Long term (current) use of insulin; Z79.2 Long term (current) use of antibiotics; Z99.2 Dependence on renal dialysis; Y83.8 Other surgical procedures as the cause of abnormal reaction of the patient, or of later complication, without mention of misadventure at the time of the procedure; Y92.238 Other place in hospital as the place of occurrence of the external cause
CPT/HCPCS: 97605; 97606; 99211

== ENCOUNTER → 2021-08-20 | Outpatient (CLI) | payer OTHER | END | disposition home or self-care (01) | LOC: WHH 13:29 | PROVIDERS: ATTEND Family Medicine | DX: T81.89XD Other complications of procedures, not elsewhere classified, subsequent encounter (principal); E11.622 Type 2 diabetes mellitus with other skin ulcer; L89.152 Pressure ulcer of sacral region, stage 2; L98.491 Non-pressure chronic ulcer of skin of other sites limited to breakdown of skin; E11.628 Type 2 diabetes mellitus with other skin complications; E11.52 Type 2 diabetes mellitus with diabetic peripheral angiopathy with gangrene; A48.0 Gas gangrene; E11.22 Type 2 diabetes mellitus with diabetic chronic kidney disease; I12.0 Hypertensive chronic kidney disease with stage 5 chronic kidney disease or end stage renal disease; N18.6 End stage renal disease; M21.372 Foot drop, left foot; M21.371 Foot drop, right foot; E78.2 Mixed hyperlipidemia; E66.9 Obesity, unspecified; F32.9 Major depressive disorder, single episode, unspecified; Z68.43 Body mass index [BMI] 50.0-59.9, adult; Z79.899 Other long term (current) drug therapy; Z79.4 Long term (current) use of insulin; Z79.2 Long term (current) use of antibiotics; Z99.2 Dependence on renal dialysis; Y83.8 Other surgical procedures as the cause of abnormal reaction of the patient, or of later complication, without mention of misadventure at the time of the procedure | CPT/HCPCS: 97605; 99214 ==

== ENCOUNTER → 2021-08-27 | Outpatient (CLI) | payer OTHER | END | disposition home or self-care (01) | LOC: WHH 13:44 | PROVIDERS: ATTEND Family Medicine | DX: T81.89XD Other complications of procedures, not elsewhere classified, subsequent encounter (principal); E11.628 Type 2 diabetes mellitus with other skin complications; E11.52 Type 2 diabetes mellitus with diabetic peripheral angiopathy with gangrene; A48.0 Gas gangrene; E11.22 Type 2 diabetes mellitus with diabetic chronic kidney disease; I12.0 Hypertensive chronic kidney disease with stage 5 chronic kidney disease or end stage renal disease; N18.6 End stage renal disease; M21.372 Foot drop, left foot; M21.371 Foot drop, right foot; E78.2 Mixed hyperlipidemia; E66.9 Obesity, unspecified; F32.9 Major depressive disorder, single episode, unspecified; Z68.43 Body mass index [BMI] 50.0-59.9, adult; Z79.899 Other long term (current) drug therapy; Z79.4 Long term (current) use of insulin; Z79.2 Long term (current) use of antibiotics; Z99.2 Dependence on renal dialysis; Y83.8 Other surgical procedures as the cause of abnormal reaction of the patient, or of later complication, without mention of misadventure at the time of the procedure | CPT/HCPCS: 97605; 99211 ==

== ENCOUNTER → 2021-08-30 | Outpatient (CLI) | payer OTHER | END | disposition home or self-care (01) | LOC: WHH 13:36 | PROVIDERS: ATTEND Family Medicine | DX: T81.89XD Other complications of procedures, not elsewhere classified, subsequent encounter (principal); E11.622 Type 2 diabetes mellitus with other skin ulcer; L89.152 Pressure ulcer of sacral region, stage 2; L98.491 Non-pressure chronic ulcer of skin of other sites limited to breakdown of skin; E11.52 Type 2 diabetes mellitus with diabetic peripheral angiopathy with gangrene; A48.0 Gas gangrene; E11.22 Type 2 diabetes mellitus with diabetic chronic kidney disease; I12.0 Hypertensive chronic kidney disease with stage 5 chronic kidney disease or end stage renal disease; N18.6 End stage renal disease; M21.372 Foot drop, left foot; M21.371 Foot drop, right foot; E78.2 Mixed hyperlipidemia; E66.9 Obesity, unspecified; F32.9 Major depressive disorder, single episode, unspecified; Z68.43 Body mass index [BMI] 50.0-59.9, adult; Z79.899 Other long term (current) drug therapy; Z79.4 Long term (current) use of insulin; Z79.2 Long term (current) use of antibiotics; Z99.2 Dependence on renal dialysis; Y83.8 Other surgical procedures as the cause of abnormal reaction of the patient, or of later complication, without mention of misadventure at the time of the procedure | CPT/HCPCS: 97605; 99211 ==

== ENCOUNTER → 2021-09-10 | Outpatient (CLI) | payer OTHER | END | disposition home or self-care (01) | LOC: WHH 13:36 | PROVIDERS: ATTEND Family Medicine | DX: T81.31XD Disruption of external operation (surgical) wound, not elsewhere classified, subsequent encounter (principal); E11.628 Type 2 diabetes mellitus with other skin complications; E11.52 Type 2 diabetes mellitus with diabetic peripheral angiopathy with gangrene; A48.0 Gas gangrene; E11.22 Type 2 diabetes mellitus with diabetic chronic kidney disease; I12.0 Hypertensive chronic kidney disease with stage 5 chronic kidney disease or end stage renal disease; N18.6 End stage renal disease; M21.372 Foot drop, left foot; M21.371 Foot drop, right foot; E66.9 Obesity, unspecified; F32.9 Major depressive disorder, single episode, unspecified; Z68.43 Body mass index [BMI] 50.0-59.9, adult; Z79.899 Other long term (current) drug therapy; Z79.2 Long term (current) use of antibiotics; Z99.2 Dependence on renal dialysis; Y83.8 Other surgical procedures as the cause of abnormal reaction of the patient, or of later complication, without mention of misadventure at the time of the procedure | CPT/HCPCS: 97605; 99211 ==

== ENCOUNTER → 2021-09-13 | Outpatient (CLI) | payer OTHER | END | disposition home or self-care (01) | LOC: WHH 10:46 | PROVIDERS: ATTEND Family Medicine | DX: T81.31XD Disruption of external operation (surgical) wound, not elsewhere classified, subsequent encounter (principal); E11.628 Type 2 diabetes mellitus with other skin complications; E11.52 Type 2 diabetes mellitus with diabetic peripheral angiopathy with gangrene; A48.0 Gas gangrene; E11.22 Type 2 diabetes mellitus with diabetic chronic kidney disease; I12.0 Hypertensive chronic kidney disease with stage 5 chronic kidney disease or end stage renal disease; N18.6 End stage renal disease; M21.372 Foot drop, left foot; M21.371 Foot drop, right foot; E66.9 Obesity, unspecified; F32.9 Major depressive disorder, single episode, unspecified; Z68.43 Body mass index [BMI] 50.0-59.9, adult; Z79.899 Other long term (current) drug therapy; Z79.2 Long term (current) use of antibiotics; Z99.2 Dependence on renal dialysis; Y83.8 Other surgical procedures as the cause of abnormal reaction of the patient, or of later complication, without mention of misadventure at the time of the procedure | CPT/HCPCS: 97605; 99211 ==

== ENCOUNTER → 2021-09-17 | Outpatient (CLI) | payer OTHER ==
[~2021-09-17] MED LIST changes: +HONEY 1 APPL/ML TUBE TP ONE; +LIDOCAINE HCL 4% LTA SOL 4 ML VIAL TP ONE
== END | disposition home or self-care (01) ==
LOC: WHH 13:40
PROVIDERS: ATTEND Family Medicine
DX: T81.31XD Disruption of external operation (surgical) wound, not elsewhere classified, subsequent encounter (principal); E11.628 Type 2 diabetes mellitus with other skin complications; E11.52 Type 2 diabetes mellitus with diabetic peripheral angiopathy with gangrene; A48.0 Gas gangrene; E11.22 Type 2 diabetes mellitus with diabetic chronic kidney disease; I12.0 Hypertensive chronic kidney disease with stage 5 chronic kidney disease or end stage renal disease; N18.6 End stage renal disease; M21.372 Foot drop, left foot; M21.371 Foot drop, right foot; E66.9 Obesity, unspecified; F32.9 Major depressive disorder, single episode, unspecified; Z68.43 Body mass index [BMI] 50.0-59.9, adult; Z79.899 Other long term (current) drug therapy; Z79.2 Long term (current) use of antibiotics; Z99.2 Dependence on renal dialysis; Y83.8 Other surgical procedures as the cause of abnormal reaction of the patient, or of later complication, without mention of misadventure at the time of the procedure
CPT/HCPCS: 99214

== ENCOUNTER → 2021-10-01 | Outpatient (CLI) | payer OTHER ==
[~2021-10-01] MED LIST changes: -HONEY 1 APPL/ML TUBE TP ONE
== END | disposition home or self-care (01) ==
LOC: WHH 11:16
PROVIDERS: ATTEND Family Medicine
DX: T81.31XD Disruption of external operation (surgical) wound, not elsewhere classified, subsequent encounter (principal); E11.628 Type 2 diabetes mellitus with other skin complications; E11.52 Type 2 diabetes mellitus with diabetic peripheral angiopathy with gangrene; A48.0 Gas gangrene; E11.22 Type 2 diabetes mellitus with diabetic chronic kidney disease; I12.0 Hypertensive chronic kidney disease with stage 5 chronic kidney disease or end stage renal disease; N18.6 End stage renal disease; M21.372 Foot drop, left foot; M21.371 Foot drop, right foot; E66.9 Obesity, unspecified; F32.9 Major depressive disorder, single episode, unspecified; Z68.43 Body mass index [BMI] 50.0-59.9, adult; Z79.899 Other long term (current) drug therapy; Z79.2 Long term (current) use of antibiotics; Z99.2 Dependence on renal dialysis; Y83.8 Other surgical procedures as the cause of abnormal reaction of the patient, or of later complication, without mention of misadventure at the time of the procedure
CPT/HCPCS: 11042

== ENCOUNTER → 2021-10-15 | Outpatient (CLI) | payer OTHER ==
[~2021-10-15] MED LIST changes: -LIDOCAINE HCL 4% LTA SOL 4 ML VIAL TP ONE
== END | disposition home or self-care (01) ==
LOC: WHH 11:11
PROVIDERS: ATTEND Family Medicine
DX: T81.31XD Disruption of external operation (surgical) wound, not elsewhere classified, subsequent encounter (principal); E11.628 Type 2 diabetes mellitus with other skin complications; E11.52 Type 2 diabetes mellitus with diabetic peripheral angiopathy with gangrene; A48.0 Gas gangrene; E11.22 Type 2 diabetes mellitus with diabetic chronic kidney disease; I12.0 Hypertensive chronic kidney disease with stage 5 chronic kidney disease or end stage renal disease; N18.6 End stage renal disease; M21.372 Foot drop, left foot; M21.371 Foot drop, right foot; E66.9 Obesity, unspecified; F32.9 Major depressive disorder, single episode, unspecified; Z68.43 Body mass index [BMI] 50.0-59.9, adult; Z79.899 Other long term (current) drug therapy; Z79.2 Long term (current) use of antibiotics; Z99.2 Dependence on renal dialysis; Y83.8 Other surgical procedures as the cause of abnormal reaction of the patient, or of later complication, without mention of misadventure at the time of the procedure
CPT/HCPCS: 17250

== ENCOUNTER → 2021-10-22 | Outpatient (CLI) | payer OTHER | END | disposition home or self-care (01) | LOC: WHH 11:15 | PROVIDERS: ATTEND Family Medicine | DX: T81.31XD Disruption of external operation (surgical) wound, not elsewhere classified, subsequent encounter (principal); E11.628 Type 2 diabetes mellitus with other skin complications; E11.52 Type 2 diabetes mellitus with diabetic peripheral angiopathy with gangrene; A48.0 Gas gangrene; E11.22 Type 2 diabetes mellitus with diabetic chronic kidney disease; I12.0 Hypertensive chronic kidney disease with stage 5 chronic kidney disease or end stage renal disease; N18.6 End stage renal disease; M21.372 Foot drop, left foot; E66.9 Obesity, unspecified; M21.371 Foot drop, right foot; F32.9 Major depressive disorder, single episode, unspecified; Z68.43 Body mass index [BMI] 50.0-59.9, adult; Z79.899 Other long term (current) drug therapy; Z79.2 Long term (current) use of antibiotics; Z99.2 Dependence on renal dialysis; Y83.8 Other surgical procedures as the cause of abnormal reaction of the patient, or of later complication, without mention of misadventure at the time of the procedure | CPT/HCPCS: 17250 ==

== ENCOUNTER → 2021-11-05 | Outpatient (CLI) | payer OTHER ==
[~2021-11-05] MED LIST changes: +LIDOCAINE HCL 4% LTA SOL 4 ML VIAL TP ONE
== END | disposition home or self-care (01) ==
LOC: WHH 11:16
PROVIDERS: ATTEND Family Medicine
DX: T81.31XD Disruption of external operation (surgical) wound, not elsewhere classified, subsequent encounter (principal); E11.628 Type 2 diabetes mellitus with other skin complications; E11.52 Type 2 diabetes mellitus with diabetic peripheral angiopathy with gangrene; A48.0 Gas gangrene; E11.22 Type 2 diabetes mellitus with diabetic chronic kidney disease; I12.0 Hypertensive chronic kidney disease with stage 5 chronic kidney disease or end stage renal disease; N18.6 End stage renal disease; M21.372 Foot drop, left foot; E66.9 Obesity, unspecified; M21.371 Foot drop, right foot; F32.9 Major depressive disorder, single episode, unspecified; Z68.43 Body mass index [BMI] 50.0-59.9, adult; Z79.899 Other long term (current) drug therapy; Z79.2 Long term (current) use of antibiotics; Z99.2 Dependence on renal dialysis; Y83.8 Other surgical procedures as the cause of abnormal reaction of the patient, or of later complication, without mention of misadventure at the time of the procedure
CPT/HCPCS: 99214